=== PATIENT | female | born 1995 | race Caucasian/White ===

== ENCOUNTER → 2020-05-06 15:12 | Outpatient (CLI) | payer BC, SELFPAY ==
--- NOTE | 2020-05-06 15:19 | US_ITS ---
PROCEDURE: US THYROID CLINICAL INDICATION: ACQUIRED HYPOTHYROIDISM, THYROMEGALY COMPARISON: No exams were available for comparison FINDINGS: Right lobe: 4 x 0.9 x 1.1 cm. There is diffuse heterogeneous echogenicity. In the mid aspect of the right lobe there is an area irregular decreased echogenicity at 6 x5 x 3 mm. There is a questionable nodule in the upper pole posteriorly at 5 mm. This is hypoechoic. Left lobe: 3.3 x 0.9 x 1.4 cm with heterogeneous echogenicity but no discrete nodule. Isthmus: The isthmus measures 3-4 mm.. Superior to the isthmus there is an 8 by 2 mm area of hypoechogenicity and may be related to small lymph node. An additional 7 x 3 mm area of decreased echogenicity noted as well possibly due to small lymph node. Additional findings: IMPRESSION: There is heterogeneous echogenicity of the thyroid gland. There are questionable nodules on the right and superior to the isthmus. Recommend six-month follow-up to confirm stability Dictated by: Yinka Mustafa MD 05/07/2020 17:28 Yinka Mustafa MD in [place] 05/07/2020 17:28
== END ==
PROVIDERS: PCP Nurse Practitioner Family; Visit Provider Nurse Practitioner Family
DX: E03.9 Hypothyroidism, unspecified (principal); E01.0 Iodine-deficiency related diffuse (endemic) goiter
CPT/HCPCS: 76536

== ENCOUNTER → 2021-03-12 11:31 | Outpatient (CLI) | payer BC, SELFPAY ==
[2021-03-12 11:54] LABS: Basophils # 0.1 K/mm3 (0-0.2); Basophils % 0.7 % (0.1-2.0); Eosinophils # 0.2 K/mm3 (0.0-0.4); Eosinophils % 2.4 % (0.1-12.0); Hematocrit 42.3 % (37.0-47.0); Hemoglobin 14.5 g/dL (12.2-16.2); Lymphocytes # 1.8 K/mm3 (0.7-4.5); Lymphocytes % 24.2 % (10-50); Mean Corpuscular HGB Conc 34.2 g/dL (31.8-35.4); Mean Corpuscular Hemoglobin 31.6 pg (27.0-31.2); Mean Corpuscular Volume 92.2 fl (81-99); Mean Platelet Volume 7.5 fl (7.4-10.4); Monocytes # 0.6 K/mm3 (0.1-1.0); Monocytes % 7.6 % (1.7-9.3); Neutrophils # 4.7 K/mm3 (1.8-7.8); Neutrophils % 65.1 % (37.0-80.0); Platelet Count 327 K/mm3 (142-424); Red Blood Count 4.59 M/mm3 (4.20-5.40); White Blood Count 7.2 K/mm3 (4.8-10.8)
[2021-03-12 12:34] LABS: Chloride 101 mmol/L (98-107); Potassium 4.5 mmoL/L (3.5-5.1); Sodium 139 mmol/L (136-145)
[2021-03-12 12:36] LABS: Alanine Aminotransferase 31 U/L (12-78); Aspartate Amino Transferase 32 U/L (14-36); Blood Urea Nitrogen 9 mg/dl (7-17); Estimated Glomerular Filt Rate 85 ml/min (>60); GFR (African American) 103 ML/MIN (>60)
[2021-03-12 12:37] LABS: Albumin Level 4.8 g/dl (3.5-5.0); Albumin/Globulin Ratio 1.5 (1.1-1.8); Alkaline Phosphatase 59 U/L (38-126); Anion Gap 14.5 mEq/L (5-15); Bilirubin,Total 0.4 mg/dl (0.2-1.3); Calcium 10.3 mg/dl (8.4-10.2); Carbon Dioxide 28 mmol/L (22.0-30.0); Globulin 3.1 g/dL (1.3-3.2); Glucose 89 mg/dl (74-100); Total Protein,Serum 7.9 g/dl (6.3-8.2)
== END ==
PROVIDERS: Visit Provider Nurse Practitioner Family
DX: R10.2 Pelvic and perineal pain (principal); R10.9 Unspecified abdominal pain; M54.5 Low back pain; R31.9 Hematuria, unspecified
CPT/HCPCS: 36415; 80053; 85025

== ENCOUNTER → 2021-04-15 09:14 | Outpatient (CLI) | payer BC, SELFPAY ==
--- NOTE | 2021-04-15 09:17 | US_ITS ---
PROCEDURE: US THYROID CLINICAL INDICATION: THYROID NODULE COMPARISON: US US THYROID from 05/06/2020 FINDINGS: Right lobe: 2.8 x 0.9 x 1.1 cm. Ill-defined hypoechoic area in the upper pole posteriorly may be due to small nodule at 5 x 2 mm versus heterogeneous echogenicity not significantly changed. 3 mm hypoechoic nodule mid polar region slightly smaller. Left lobe: 2.7 x 0.7 x 1.1 cm Isthmus: 7 x 4 mm hypoechoic area superior to the left side of the isthmus and may be due to small node. 7 x 4 mm hypoechoic area superior to the isthmus also possibly due to small node versus overlying strap muscle. Additional findings: There is mild diffuse heterogeneous echogenicity of the thyroid gland as before. The IMPRESSION: No change in the small nodules of the right lobe of the thyroid gland and superior to the left side of the isthmus. Suggest continued annual follow-up Dictated by: Yinka Mustafa MD 04/15/2021 18:46 Yinka Mustafa MD in [facility] 04/15/2021 18:46
== END ==
PROVIDERS: PCP Nurse Practitioner Family; Visit Provider Nurse Practitioner Family
DX: E04.1 Nontoxic single thyroid nodule (principal)
CPT/HCPCS: 76536

== ENCOUNTER 2021-06-02 11:43 | Emergency (ER) | payer BC, SELFPAY ==
[2021-06-02] VITALS (8 sets, daily range): BP systolic 106–132; BP diastolic 57–87; PULSE 68–98; RESP 15–18; TEMP 36.6; O2SAT 98–100; BMI 35.9
--- NOTE | 2021-06-02 11:58 | XR_ITS ---
PROCEDURE: XR CHEST PORTABLE CLINICAL HISTORY: chest pain COMPARISON: CT CTAC CTA-CHEST from 04/17/2015 FINDINGS: The cardiomediastinal silhouette and pulmonary vascularity are within normal limits. The lungs are clear without infiltrates, suspicious nodules, or pleural effusions. No acute bony abnormalities. IMPRESSION: No acute findings. Dictated by: Yinka Mustafa MD 06/02/2021 12:32 Yinka Mustafa MD in [place] 06/02/2021 12:32
--- NOTE | 2021-06-02 12:07 | HMH.EDGENADL ---
ED Disposition Clinical Impression: Nausea vomiting and diarrhea Abdominal pain Qualifiers: Abdominal location: upper abdomen, unspecified Qualified Code(s): R10.10 - Upper abdominal pain, unspecified Disposition: Home, Self-Care Condition on Discharge: Fair Instructions: DI for Nausea -- Adult Additional Instructions: You have been evaluated for upper abdominal pain, nausea and vomiting. Your work-up today does not show one clear reason. Your appendix is rather large, but you do not have lower abdominal pain to suggest an acute appendicitis. Please take Zofran for nausea. Tylenol or Motrin for pain and fever. Clear liquid diet. Return to the emergency department at once if you have any new or worsening symptoms, especially if you develop pain near the bellybutton or right lower quadrant of the abdomen as this could be a sign of appendicitis. Prescriptions: Ondansetron [Zofran 4mg ODT] 4 mg PO Q6 PRN #12 tab PRN Reason: Vomiting Transmission Status: Pending to [id number] Referrals: Nuria Johnson APRN [Primary Care Provider] - Time of Disposition: 15:59 - Critical Care Critical Care Time: No Attestation: On 06/02/21, the high probability of a clinically significant, sudden or life threatening deterioration of the following system(s) required my full and direct attention, intervention and personal management. The time I documented below is in addition to time spent performing reported procedures but includes the following listed in this critical care notation. Medical Decision Making - Medical Records Medical records reviewed: Yes: I reviewed the patient's medical records. - Miguel Inquiry Pt receiving controlled substance: No Vital Signs: 06/02/21 11:43 06/02/21 12:30 06/02/21 13:00 Temperature 97.8 F Temperature Source Oral Pulse Rate 87 87 Pulse Rate [Left Radial] 98 H Respiratory Rate 18 15 16 Blood Pressure 113/70 116/67 Blood Pressure [Right Arm] 121/80 Blood Pressure Mean 78 79 Blood Pressure Mean [Right Arm] 93 Blood Pressure Source [Right Arm] Automatic Cuff Blood Pressure Position [Right Arm] Sitting 02 Sat by Pulse Oximetry 100 98 99 Oxygen Delivery Method Room Air 06/02/21 13:30 06/02/21 14:01 06/02/21 15:00 Temperature Temperature Source Pulse Rate 85 68 86 Pulse Rate [Left Radial] Respiratory Rate 16 17 Blood Pressure 107/57 L 116/65 129/87 Blood Pressure [Right Arm] Blood Pressure Mean 71 96 Blood Pressure Mean [Right Arm] Blood Pressure Source [Right Arm] Blood Pressure Position [Right Arm] 02 Sat by Pulse Oximetry 100 98 100 Oxygen Delivery Method 06/02/21 15:30 Temperature Temperature Source Pulse Rate 86 Pulse Rate [Left Radial] Respiratory Rate 15 Blood Pressure 106/62 L Blood Pressure [Right Arm] Blood Pressure Mean 77 Blood Pressure Mean [Right Arm] Blood Pressure Source [Right Arm] Blood Pressure Position [Right Arm] 02 Sat by Pulse Oximetry 100 Oxygen Delivery Method - Lab Data Lab Results 06/02/21 12:05: Urine Color Yellow, Urine Appearance Clear, Urine pH 6.0, Ur Specific Bruno >= 1.030, Urine Protein Negative, Urine Glucose (UA) Negative, Urine Ketones Negative, Urine Blood 2+, Urine Nitrate Negative, Urine Bilirubin Negative, Urine Urobilinogen 0.2, Ur Leukocyte Esterase Negative, Urine RBC 3-5, Urine WBC None, Ur Squamous Epith Cells 3-5, Urine Bacteria None 06/02/21 12:05: WBC 14.9 H, RBC 4.97, Hgb 15.0, Hct 45.6, MCV 91.7, MCH 30.1, MCHC 32.9, RDW 13.0, Plt Count 380, MPV 7.8, Neut % (Auto) 93.1 H, Lymph % (Auto) 3.4 L, Spink % (Auto) 2.6, Eos % (Auto) 0.7, Baso % (Auto) 0.2, Neut # (Auto) 13.9 H, Lymph # (Auto) 0.5 L, Spink # (Auto) 0.4, Eos # (Auto) 0.1, Baso # (Auto) 0.0, Total Counted 100, Neutrophils % (Manual) 95 H, Lymphocytes % (Manual) 2 L, Monocytes % (Manual) 3, Platelet Estimate Normal, RBC Morphology Normal 06/02/21 12:05: Sodium 138, Potassium 5.0, Chloride 101, Carb
[2021-06-02 12:18] LABS: Appearance,Urine CLEAR (Clear); Bilirubin,Urine Negative (Negative); Blood, Urine 2+ (Negative); Color,Urine YELLOW (Yellow); Glucose,Urine (UA) Negative (Negative); Ketones,Urine Negative (Negative); Leukocyte Esterase,Urine Negative (Negative); Microscopic, Urine URINE MICROSCOPIC (MICROSCOPIC); Nitrate,Urine Negative (Negative); Protein,Urine Negative (Negative); Specific Gravity, Urine >= 1.030 (1.005-1.030); Urobilinogen,Urine 0.2 EU/dl (0.2)
[2021-06-02 12:23] LABS: Basophils % 0.2 % (0.1-2.0); Chloride 101 mmol/L (98-107); Eosinophils # 0.1 K/mm3 (0.0-0.4); Eosinophils % 0.7 % (0.1-12.0); Hematocrit 45.6 % (37.0-47.0); Lymphocytes # 0.5 K/mm3 (0.7-4.5); Lymphocytes % 3.4 % (10-50); Mean Corpuscular HGB Conc 32.9 g/dL (31.8-35.4); Mean Corpuscular Hemoglobin 30.1 pg (27.0-31.2); Mean Corpuscular Volume 91.7 fl (81-99); Mean Platelet Volume 7.8 fl (7.4-10.4); Monocytes # 0.4 K/mm3 (0.1-1.0); Monocytes % 2.6 % (1.7-9.3); Neutrophils # 13.9 K/mm3 (1.8-7.8); Neutrophils % 93.1 % (37.0-80.0); Platelet Count 380 K/mm3 (142-424); Red Blood Count 4.97 M/mm3 (4.20-5.40); Sodium 138 mmol/L (136-145); White Blood Count 14.9 K/mm3 (4.8-10.8)
[2021-06-02 12:25] LABS: Alanine Aminotransferase 37 U/L (12-78); Aspartate Amino Transferase 56 U/L (14-36); Blood Urea Nitrogen 19 mg/dl (7-17); Creatinine Clearance Estimated 142 mL/min (50-200); Estimated Glomerular Filt Rate 85 ml/min (>60); GFR (African American) 103 ML/MIN (>60)
[2021-06-02 12:26] LABS: Albumin/Globulin Ratio 1.5 (1.1-1.8); Alkaline Phosphatase 53 U/L (38-126); Bilirubin,Total 0.8 mg/dl (0.2-1.3); Calcium 9.5 mg/dl (8.4-10.2); Carbon Dioxide 25 mmol/L (22.0-30.0); Globulin 3.3 g/dL (1.3-3.2); Glucose 109 mg/dl (74-100); Lipase 82 U/L (23-300); Total Protein,Serum 8.3 g/dl (6.3-8.2)
[2021-06-02 12:28] LABS: MANUAL DIFFERENTIAL MANUAL DIFFERENTIAL (MANUAL DIFF)
[2021-06-02 12:30] LABS: HCG Qualitative, Serum Negative (Negative)
--- NOTE | 2021-06-02 12:35 | CT_ITS ---
PROCEDURE: CT ABDOMEN PELVIS W CON CLINICAL INDICATION: nausea, vomiting, abd pain COMPARISON: No exams were available for comparison TECHNIQUE: IV Contrast: 75ML Isovue 370 Oral Contrast None Axial images obtained with sagittal and coronal reformats. All CT scans at the facility use one or more dose reduction, viz: automated exposure control, ma/kV adjustment per patient size (including targeted exams where dose is matched to indication, i.e. head), or iterative reconstruction technique. FINDINGS: LOWER THORAX: No acute finding ABDOMEN & PELVIS: The liver, spleen, pancreas, adrenal glands, and kidneys have an unremarkable appearance. 8 mm fatty density is noted in the transverse portion of the duodenum suggesting a small lipoma. No intestinal obstruction or free air is evident. Proximal aspect of the appendix has an unremarkable appearance. There is mild prominence of the mid aspect of the appendix measuring up to 9 mm in diameter. There is no stranding of the periappendiceal fat. The appendiceal tip has an unremarkable appearance. No pelvic mass or abnormal fluid collection. No acute bony anomalies IMPRESSION: There is mild distension of the mid aspect of the appendix. The proximal aspect and tip of the appendix have an unremarkable appearance. There is no stranding of the periappendiceal fat. This is of questionable clinical significance. Please correlate with clinical parameters regarding the possibility of early appendicitis. If clinical findings are indeterminate then would suggest a follow-up exam with IV and oral contrast in 12-24 hours. Dictated by: Yinka Mustafa MD 06/02/2021 14:43 Yinka Mustafa MD in [place] 06/02/2021 14:43
[2021-06-02 12:41] LABS: Coronavirus 19, PCR Not Detected (NotDetected); Influenza A, PCR Not Detected (NotDetected); Influenza B, PCR Not Detected (NotDetected)
[2021-06-02 12:52] LABS: Lymphocytes % 2 % (10-50); Monocytes % 3 % (2-9); Neutrophils % 95 % (42-76); Platelet Estimate Normal; Total Cells Counted 100
[2021-06-02 12:54] LABS: RBC Morphology Normal
--- NOTE | 2021-06-02 16:04 | HMH.GSCON ---
*Admission Date: 06/02/21 *Reason for consult:: Abdominal pain *History of present illness: Patient is a 26-year-old female from [place] who previously had laparoscopic cholecystectomy by Dr. Johnson 5 years ago for cholelithiasis. Presented to the emergency department after having onset of epigastric pain with nausea occurring early this morning. She describes the pain as constant burning. It had improved after she had vomiting. She has never had any lower abdominal pain. She has children who have had enteritis. She was seen and evaluated emergency department found to have a mild leukocytosis of 14,000. She therefore underwent CT scan of the abdomen and pelvis which somewhat interestingly revealed a 9 mm appendix without any stranding. Surgery was asked to evaluate Review of Systems - Review of Systems Review of systems:: pertinent systems reviewed and negative unless documented below - *Neurologic Denies headache(s), Denies numbness [facility] History I have reviewed the patient's past medical history: Yes *Have you ever received a pneumonia vaccine?: No *Have you received a flu vaccine this season?: No - *Social History Smoking Status: Smoker, status unknown Alcohol Intake: never *Occupational Status:: other *Travel in the last 8 weeks: None Family Hx:: Non-contributory Meds Home Medications Medication Instructions Recorded Confirmed Type predniSONE [Prednisone 20mg 20 mg PO BID 5 Days #10 tab 05/22/19 Rx Tab] Ondansetron [Zofran 4mg ODT] 4 mg PO Q6 PRN #12 tab 06/02/21 Rx Allergies Allergy/AdvReac Type Severity Reaction Status Date / Time ibuprofen [IBUPROFEN] Allergy Intermediate I-HIVES Verified 06/16/18 22:26 Exam Vital signs and Labs for Last 24 Hours: Temp Pulse Resp BP Pulse Ox 97.8 F 86 15 106/62 L 100 06/02/21 11:43 06/02/21 15:30 06/02/21 15:30 06/02/21 15:30 06/02/21 15:30 Laboratory Results - last 24 hr 06/02/21 12:05: Urine Color Yellow, Urine Appearance Clear, Urine pH 6.0, Ur Specific Panther Burn >= 1.030, Urine Protein Negative, Urine Glucose (UA) Negative, Urine Ketones Negative, Urine Blood 2+, Urine Nitrate Negative, Urine Bilirubin Negative, Urine Urobilinogen 0.2, Ur Leukocyte Esterase Negative, Urine RBC 3-5, Urine WBC None, Ur Squamous Epith Cells 3-5, Urine Bacteria None 06/02/21 12:05: WBC 14.9 H, RBC 4.97, Hgb 15.0, Hct 45.6, MCV 91.7, MCH 30.1, MCHC 32.9, RDW 13.0, Plt Count 380, MPV 7.8, Neut % (Auto) 93.1 H, Lymph % (Auto) 3.4 L, Hand % (Auto) 2.6, Eos % (Auto) 0.7, Baso % (Auto) 0.2, Neut # (Auto) 13.9 H, Lymph # (Auto) 0.5 L, Hand # (Auto) 0.4, Eos # (Auto) 0.1, Baso # (Auto) 0.0, Total Counted 100, Neutrophils % (Manual) 95 H, Lymphocytes % (Manual) 2 L, Monocytes % (Manual) 3, Platelet Estimate Normal, RBC Morphology Normal 06/02/21 12:05: Sodium 138, Potassium 5.0, Chloride 101, Carbon Dioxide 25, Anion Gap 17.0 H, BUN 19 H, Creatinine 0.80, Estimated Creat Clear 142, Estimated GFR 85, Est GFR ( Amer) 103, Glucose 109 H, Calcium 9.5, Total Bilirubin 0.8, AST 56 H, ALT 37, Alkaline Phosphatase 53, Total Protein 8.3 H, Albumin 5.0, Globulin 3.3 H, Albumin/Globulin Ratio 1.5, Lipase 82 06/02/21 12:05: Serum HCG, Qual Negative 06/02/21 12:34: SARS-CoV-2 (PCR) Not detected, Influenza A Untype (PCR) Not detected, Influenza Type B (PCR) Not detected I & O for Last 24 hours: Intake & Output 05/31/21 06/01/21 06/02/21 06/03/21 11:59 11:59 11:59 11:59 Weight 190 lb - *Routine Abdominal Exam Present: soft Comments: Her abdomen is soft. She has some subjective discomfort to palpation in the epigastrium. Mild subjective discomfort in the left lower quadrant without guarding or rebound. No tenderness guarding or rebound in the right lower quadrant. Results - Labs 06/02/21 12:05 06/02/21 12:05 Laboratory Results - last 24 hr 06/02/21 12:05: Urine Color Yellow, Urine Appearance Clear, Urine pH 6.0, Ur Specific Panther Burn >= 1.030, Urine Prot
== END 2021-06-02 16:20 | disposition home or self-care (01) ==
PROVIDERS: Emergency Provider Emergency Medicine; PCP Nurse Practitioner Family
DX: R11.2 Nausea with vomiting, unspecified (principal); R10.31 Right lower quadrant pain; Z20.822 Contact with and (suspected) exposure to COVID-19
CPT/HCPCS: 71045; 74177; 80053; 81001; 83690; 84703; 85007; 85025; 96365; 96375; 96376; 99283; C9803; J2405; Q9967; U0003; U0005

== ENCOUNTER 2023-02-24 11:59 | Emergency (ER) | payer BC, SELFPAY ==
[2023-02-24 12:10] VITALS: BP 129/93; PULSE 77; RESP 18; TEMP 36.7; O2SAT 100; BMI 33.7
--- NOTE | 2023-02-24 12:13 | XR_ITS ---
FINAL REPORT CLINICAL HISTORY: pain FINDINGS: Left wrist Three views were obtained. There is no acute fracture or dislocation. The joint spaces appear normal. No soft tissue abnormality is identified. IMPRESSION: No acute process. Reviewed, Interpreted and Dictated by Henry Nicholas III, MD Transcribed by Keyanna Greer Authenticated and [facility]
--- NOTE | 2023-02-24 12:13 | XR_ITS ---
FINAL REPORT CLINICAL HISTORY: pain FINDINGS: Left hand Three views were obtained. There is no acute fracture or dislocation. The joint spaces appear normal. No soft tissue abnormality is identified. IMPRESSION: No acute process. Reviewed, Interpreted and Dictated by Henry Nicholas III, MD Transcribed by Keyanna Greer Authenticated and [facility]
--- NOTE | 2023-02-24 12:18 | XR_ITS ---
FINAL REPORT CLINICAL HISTORY: pain FINDINGS: Left elbow Three views were obtained. There is no acute fracture or dislocation. The joint spaces appear normal. No joint effusion is identified. No soft tissue abnormality is identified. IMPRESSION: No acute process. Reviewed, Interpreted and Dictated by Henry Nicholas III, MD Transcribed by Keyanna Greer Authenticated and . [facility]
--- NOTE | 2023-02-24 12:18 | XR_ITS ---
FINAL REPORT CLINICAL HISTORY: pain FINDINGS: Left forearm Two views were obtained. There is no acute fracture or dislocation. The joint spaces appear normal. No soft tissue abnormality is identified. IMPRESSION: No acute process. Reviewed, Interpreted and Dictated by Henry Nicholas III, MD Transcribed by Keyanna Greer Authenticated and [facility]
--- NOTE | 2023-02-24 12:39 | EXP.UTC ---
Discharge Plan Disposition Patient Disposition: Home, Self-Care Condition: Good Prescriptions Prescriptions: New methylprednisolone 4 mg Tablets,Dose Pack 4 mg PO DIRECTED Qty: 21 0RF No Action cetirizine 10 mg tablet 10 mg PO DAILY Patient Comments: TAKE 1 TABLET 1 TIME EACH DAY levothyroxine 125 mcg tablet 125 mcg PO DAILY Patient Comments: TAKE 1 TABLET 1 TIME EACH DAY bupropion HCl 200 mg tablet sustained-release 12 hr 400 mg PO DAILY Patient Comments: TAKE 1 TABLET 2 TIMES EACH DAY Saxenda 3 mg/0.5 mL (18 mg/3 mL) pen injector 2.4 mg SQ DAILY Patient Comments: INJECT 1.8 MG UNDER THE SKIN 1 TIME EACH DAY Referrals Follow up/Referrals: Duarte Johnson JR, MD [Physician] - See instructions Rebeka Chris APRN [Primary Care Provider] - See instructions Activity Restrictions/Add. Instructions Additional Instructions/Restrictions: Rest the extremity, Elevate the extremity as tolerated while you are resting. Take the methylprednisone as directed. Follow up with Dr. Johnson (orthopedics). I put in a referral but you need to call his office and schedule an appointment. His office phone number will be on this paperwork. Follow up with your regular doctor. GO TO THE ER FOR ANY WORSENING SYMPTOMS Clinical Impressions Clinical Impression: Tendinitis of left wrist, Left wrist pain, Pain in left arm Stand Alone Forms Stand Alone Forms: Work/School Release Instructions Patient Instructions: DI for Tendinitis, DI for Wrist Pain Discharge ED Provider: Nikunj Walker [facility] General Stated complaint: left wrist pain, unknown origin Mode of Arrival: Ambulatory Source of Information: Patient Limitations: No Limitations Time Seen by Provider: 02/24/23 12:38 Description of Symptoms (Recalled from Triage Doc. by RN): Pain in left wrist that radiates from wrsit to elbow. She described it as a deep shooting pain . HEENT Symptoms (Recalled from RN notes): No Resp Symptoms (Recalled from RN notes): No Skin Symptoms (Recalled from RN notes): No MS Symptoms (Recalled from RN notes): Yes Functional Status (Recalled from RN notes): n/a History of Present Illness Provider Complaint: She states that for the past 5 days she has had right wrist pain. She denies any injury. She states that bending the wrist makes the pain worse. Related Data Home Medications Medication Instructions Recorded Confirmed bupropion HCl 200 mg tablet,12 hr 400 mg PO DAILY . 02/24/23 02/24/23 sustained-release cetirizine 10 mg tablet 10 mg PO DAILY allergies 02/24/23 02/24/23 levothyroxine 125 mcg tablet 125 mcg PO DAILY thyroid 02/24/23 02/24/23 liraglutide (weight loss) 3 mg/0.5 2.4 mg SQ DAILY insulin resistant 02/24/23 02/24/23 mL (18 mg/3 mL) subcut pen injector (Saxenda) Previous Rx's Medication Instructions Recorded methylprednisolone 4 mg tablets in 4 mg PO DIRECTED #21 tabs 02/24/23 a dose pack Allergies Allergy/AdvReac Type Severity Reaction Status Date / Time ibuprofen [IBUPROFEN] Allergy Intermediate I-HIVES Verified 02/24/23 12:21 Worker's Comp Is this a Worker's Comp case?: No [facility] Disclaimer: The information contained in this section may have been updated after the patient was seen, as this information can be updated by other users. Social History Smoking Status: Smoker, status unknown alcohol intake: never current occupational status: other Travel in the last 8 weeks: None ROS Obtained: Yes All systems reviewed & no additional complaints except as documented Constitutional Constitutional: Denies chills and Denies fever(s) Eyes Eyes: Denies eye discharge ENT Ears, Nose, Mouth, and Throat: Denies dizziness, Denies otalgia and Denies sore throat Cardiovascular Cardiovascular: Denies chest pain Respiratory Respiratory: Denies shortness of breath, Denies chest congestion, Denies cough, Denies stridor and
[2023-02-24 13:15] VITALS: BP 129/93; PULSE 77; RESP 18; TEMP 36.7; O2SAT 100
== END 2023-02-24 13:15 | disposition home or self-care (01) ==
PROVIDERS: Emergency Provider Nurse Practitioner Family; PCP Nurse Practitioner Family
DX: M79.602 Pain in left arm (principal); M25.532 Pain in left wrist; M77.8 Other enthesopathies, not elsewhere classified
CPT/HCPCS: 73080; 73090; 73110; 73130; 99204; 99212; G0463

== ENCOUNTER 2023-04-09 14:22 | Emergency (ER) | payer BC, SELFPAY ==
[2023-04-09 14:35] VITALS: BP 116/69; PULSE 85; RESP 20; TEMP 36.8; O2SAT 98; BMI 34.2
--- NOTE | 2023-04-09 15:08 | EXP.UTC ---
Discharge Plan Disposition Patient Disposition: Home, Self-Care Condition: Good Prescriptions Prescriptions: New methocarbamol 500 mg tablet 500 mg PO TID PRN (Reason: muscle spasm) Qty: 20 0RF amoxicillin 500 mg capsule 500 mg PO BID 10 Days Qty: 20 0RF No Action cetirizine 10 mg tablet 10 mg PO DAILY Patient Comments: TAKE 1 TABLET 1 TIME EACH DAY levothyroxine 125 mcg tablet 125 mcg PO DAILY Patient Comments: TAKE 1 TABLET 1 TIME EACH DAY bupropion HCl 200 mg tablet sustained-release 12 hr 400 mg PO DAILY Patient Comments: TAKE 1 TABLET 2 TIMES EACH DAY Saxenda 3 mg/0.5 mL (18 mg/3 mL) pen injector 2.4 mg SQ DAILY Patient Comments: INJECT 1.8 MG UNDER THE SKIN 1 TIME EACH DAY Referrals Follow up/Referrals: Provider,Referral, MD [Primary Care Provider] - See instructions Activity Restrictions/Add. Instructions Additional Instructions/Restrictions: * Tylenol every 4 hours as needed for pain *Ice 20 minutes every 2 hours for the first 48 hours after the initial injury followed by moist heat every 20 minutes 3-4 times a day to affected area *Muscle relaxer every 8 hours as needed for muscle spasms but remember, it WILL cause drowsiness You cannot take it and drive, operate machinery or care for small children. *Keep this area active, no movement leads to more stiffness, However take it easy and avoid heavy lifting pushing or pulling *Follow up with you family doctor if no improvement for further treatment ? *Monitor Temp, Over the counter Motrin or Tylenol as directed/as needed Tylenol every 4 hours and Motrin every 6 hours (as long as your family doctor has told you that you can take it) for fever or pain. and straight to ER if unable to lower temp less than 101.0 after medication given *Warm salt water gargles may help to soothe the throat *Throat Lozenges? *Warm fluids like tea with honey may help to soothe the throat? *Sleep elevated *Humidifier/Vaporizer Follow up IMMEDIATELY for new or worsening symptoms or no Noticeable improvement over the next 48-72 hours. 911 for difficulty breathing or swallowing? Clinical Impressions Clinical Impression: Muscle spasm, Strep throat Stand Alone Forms Stand Alone Forms: Work/School Release Instructions Patient Instructions: DI for Muscle Spasm, DI for Strep Throat Discharge ED Provider: Ct Conley [facility] [place] HPI General Stated complaint: UPPER BACK PAIN MIDDLE TO LEFT Mode of Arrival: Ambulatory Source of Information: Patient Limitations: No Limitations Time Seen by Provider: 04/09/23 15:08 Description of Symptoms (Recalled from Triage Doc. by RN): PATIENT C/O SHARP PAIN TO LEFT UPPER BACK/SHOULDER BLADE AREA THAT STARTED THIS MORNING. SHE REPORTS PAIN WITH MOVEMENT AND BREATHING. ALSO C/O SORE THROAT HEENT Symptoms (Recalled from RN notes): Yes Resp Symptoms (Recalled from RN notes): No Skin Symptoms (Recalled from RN notes): No MS Symptoms (Recalled from RN notes): Yes Functional Status (Recalled from RN notes): WNL History of Present Illness Provider Complaint: Patient states that she had a massage a few days ago and she woke up this morning with pain in her left upper back shoulder blade area that is worse with movement and at times when she takes a deep breath States that she is not sure if she may have slept wrong last night or what but feels tight like she is having spasms States that also her throat is red and sore and wants to get that checked too Related Data Home Medications Medication Instructions Recorded Confirmed bupropion HCl 200 mg tablet,12 hr 400 mg PO DAILY Depression 02/24/23 04/09/23 sustained-release cetirizine 10 mg tablet 10 mg PO DAILY Allergy Symptoms 02/24/23 04/09/23 levothyroxine 125 mcg tablet 125 mcg PO DAILY thyroid 02/24/23 04/09/23 liraglutide (weight loss) 3 mg/0.5 2.4 mg SQ DAILY insu
[2023-04-09 15:25] LABS: UTC Strep Screen (Rapid) Positive (Negative)
[2023-04-09 15:28] VITALS: BP 116/69; PULSE 85; RESP 20; TEMP 36.8; O2SAT 98
== END 2023-04-09 15:32 | disposition home or self-care (01) ==
PROVIDERS: Emergency Provider Nurse Practitioner
DX: J02.0 Streptococcal pharyngitis (principal); M62.838 Other muscle spasm
CPT/HCPCS: 87880; 99212; 99214; G0463

== ENCOUNTER 2023-05-18 09:55 | Emergency (ER) | payer BC, SELFPAY ==
[2023-05-18] VITALS (10 sets, daily range): BP systolic 100–157; BP diastolic 60–101; PULSE 66–88; RESP 18–20; TEMP 36.7–36.8; O2SAT 98–100; BMI 31.0
[2023-05-18 11:00] LABS: UTC Pregnancy Test, Urine Negative (Negative)
[2023-05-18 11:01] LABS: Apearance,Urine Clear (Clear); Bilirubin,Urine Negative (Negative); Blood, Urine 2+ (Negative); Color,Urine Dark Yellow (Yellow); Glucose,Urine (UA) Negative (Negative); Ketones,Urine Negative (Negative); PH,Urine 5.5 (5.0-8.5); Protein,Urine Negative (Negative); UTC Leukocyte Esterase,Urine Trace (Negative); UTC Nitrate,Urine Negative (Negative); Urobilinogen,Urine 0.2 EU/dl (0.2)
--- NOTE | 2023-05-18 11:01 | EXP.UTC ---
Discharge Plan Disposition Patient Disposition: Still a Patient Condition: Good Prescriptions Prescriptions: New ondansetron 4 mg tablet,disintegrating 4 mg PO Q8H PRN (Reason: nausea and vomiting) 4 Days Qty: 12 0RF pantoprazole 40 mg tablet,delayed release (DR/EC) 40 mg PO DAILY Qty: 30 0RF No Action cetirizine 10 mg tablet 10 mg PO DAILY Patient Comments: TAKE 1 TABLET 1 TIME EACH DAY levothyroxine 125 mcg tablet 125 mcg PO DAILY Patient Comments: TAKE 1 TABLET 1 TIME EACH DAY bupropion HCl 200 mg tablet sustained-release 12 hr 400 mg PO DAILY Patient Comments: TAKE 1 TABLET 2 TIMES EACH DAY Saxenda 3 mg/0.5 mL (18 mg/3 mL) pen injector 2.4 mg SQ DAILY Patient Comments: INJECT 1.8 MG UNDER THE SKIN 1 TIME EACH DAY Referrals Follow up/Referrals: Provider,Junior, [Primary Care Provider] - See instructions Jean-Claude Russell MD [Staff Physician] - See instructions (with persistent symptoms to discuss and EGD for evaluation of a possible ulcer ) Activity Restrictions/Add. Instructions Additional Instructions/Restrictions: No acute surgical or medical emergency was identified today. Your symptoms are most likely consistent with gastroesophageal reflux disease but given the persistence of your symptoms a referral to our general surgeon has been made and you may make an appointment to discuss an outpatient EGD for evaluation of possible ulcer if your symptoms or not improving. Please continue to take [id number] antacids and take your pantoprazole that was prescribed by Dr. Colon. Clinical Impressions Clinical Impression: Gastroesophageal reflux disease, Abdominal pain, Hematuria Stand Alone Forms Stand Alone Forms: Work/School Release Discharge ED Provider: Alona Colon [facility] General Stated complaint: abd pain and right side pain Mode of Arrival: Ambulatory Source of Information: Patient Limitations: No Limitations Time Seen by Provider: 05/18/23 11:01 Description of Symptoms (Recalled from Triage Doc. by RN): Pt has been having diarrhea, vomiting, and nausea. She is complaing of upper right sided abdominal pain that wraps around the back right side. She states that is starts right below the sternum. HEENT Symptoms (Recalled from RN notes): No Resp Symptoms (Recalled from RN notes): No Skin Symptoms (Recalled from RN notes): No MS Symptoms (Recalled from RN notes): No Functional Status (Recalled from RN notes): n/a History of Present Illness Provider Complaint: Patient states states that she has been having some acid reflux and been taking tums and had some diarrhea and vomiting States that since this morning she has been having pain in her right side flank area to her right mid abdomen States feels like it goes from her naval area to around her right side states that she doesnt have a gallbladder but pain is making her very uncomfortable Related Data Home Medications Medication Instructions Recorded Confirmed bupropion HCl 200 mg tablet,12 hr 400 mg PO DAILY Depression 02/24/23 05/18/23 sustained-release cetirizine 10 mg tablet 10 mg PO DAILY Allergy Symptoms 02/24/23 05/18/23 levothyroxine 125 mcg tablet 125 mcg PO DAILY thyroid 02/24/23 05/18/23 liraglutide (weight loss) 3 mg/0.5 2.4 mg SQ DAILY insulin resistant 02/24/23 05/18/23 mL (18 mg/3 mL) subcut pen injector (Saxenda) Previous Rx's Medication Instructions Recorded ondansetron 4 mg disintegrating 4 mg PO Q8H PRN nausea and 05/18/23 tablet vomiting 4 days #12 tabs pantoprazole 40 mg tablet,delayed 40 mg PO DAILY #30 tabs 05/18/23 release Allergies Allergy/AdvReac Type Severity Reaction Status Date / Time ibuprofen [IBUPROFEN] Allergy Intermediate I-HIVES Verified 05/18/23 10:52 Worker's Comp Is this a Worker's Comp case?: No [facility] Disclaimer: The information contained in this section may have been updated after the patient was seen, as t
--- NOTE | 2023-05-18 11:56 | ECG_ITS ---
APPROVED REPORT Exam: Resting ECG HR:75 bpm ECG Measurements Heart Rate 75 AXES SD 168 P 67 QRSd 95 QRS 57 QT 368 T 76 QTc 396 Conclusion SINUS RHYTHM NORMAL ECG UNCONFIRMED REPORT Electronically signed by : Vineet Chery MD 05/19/2023 13:23:29
--- NOTE | 2023-05-18 12:00 | PC.NURSE ---
checked on pt no needs at this time,call light at bs
[2023-05-18 12:04] LABS: Basophils % 0.4 % (0.1-2.0); Eosinophils # 0.2 K/mm3 (0.0-0.4); Eosinophils % 2.8 % (0.1-12.0); Hematocrit 43.6 % (37.0-47.0); Hemoglobin 14.7 g/dL (12.2-16.2); Lymphocytes # 2.1 K/mm3 (0.7-4.5); Lymphocytes % 25.9 % (10-50); Mean Corpuscular HGB Conc 33.7 g/dL (31.8-35.4); Mean Corpuscular Hemoglobin 30.1 pg (27.0-31.2); Mean Corpuscular Volume 89.2 fl (81-99); Mean Platelet Volume 8.3 fl (7.4-10.4); Monocytes # 0.6 K/mm3 (0.1-1.0); Neutrophils # 5.2 K/mm3 (1.8-7.8); Neutrophils % 63.8 % (37.0-80.0); Platelet Count 289 K/mm3 (142-424); Red Blood Count 4.89 M/mm3 (4.20-5.40); Red Cell Distribution Width 13.6 % (11.5-17.5); White Blood Count 8.2 K/mm3 (4.8-10.8)
[2023-05-18 12:08] LABS: Alanine Aminotransferase 22 U/L (12-78); Albumin/Globulin Ratio 1.4 (1.1-1.8); Alkaline Phosphatase 54 U/L (38-126); Anion Gap 13.1 mEq/L (5-15); Aspartate Amino Transferase 32 U/L (14-36); Bilirubin,Total 0.5 mg/dl (0.2-1.3); Blood Urea Nitrogen 12 mg/dl (7-17); Calcium 9.4 mg/dl (8.4-10.2); Carbon Dioxide 24 mmol/L (22.0-30.0); Chloride 105 mmol/L (98-107); Creatinine Clearance Estimated 97 mL/min (50-200); Estimated Glomerular Filt Rate 58 ml/min (>60); GFR (African American) 71 ML/MIN (>60); Globulin 3.5 g/dL (1.3-3.2); Glucose 84 mg/dl (74-100); Lipase 90 U/L (23-300); Potassium 4.1 mmoL/L (3.5-5.1); Sodium 138 mmol/L (136-145); Total Protein,Serum 8.5 g/dl (6.3-8.2)
--- NOTE | 2023-05-18 12:12 | HMH.EDGENADL ---
Discharge Plan Disposition Patient Disposition: Still a Patient Condition: Good Prescriptions Prescriptions: New ondansetron 4 mg tablet,disintegrating 4 mg PO Q8H PRN (Reason: nausea and vomiting) 4 Days Qty: 12 0RF pantoprazole 40 mg tablet,delayed release (DR/EC) 40 mg PO DAILY Qty: 30 0RF No Action cetirizine 10 mg tablet 10 mg PO DAILY Patient Comments: TAKE 1 TABLET 1 TIME EACH DAY levothyroxine 125 mcg tablet 125 mcg PO DAILY Patient Comments: TAKE 1 TABLET 1 TIME EACH DAY bupropion HCl 200 mg tablet sustained-release 12 hr 400 mg PO DAILY Patient Comments: TAKE 1 TABLET 2 TIMES EACH DAY Saxenda 3 mg/0.5 mL (18 mg/3 mL) pen injector 2.4 mg SQ DAILY Patient Comments: INJECT 1.8 MG UNDER THE SKIN 1 TIME EACH DAY Referrals Follow up/Referrals: Provider,MD Junior [Primary Care Provider] - See instructions Jean-Claude Russell MD [Staff Physician] - See instructions (with persistent symptoms to discuss and EGD for evaluation of a possible ulcer ) Activity Restrictions/Add. Instructions Additional Instructions/Restrictions: No acute surgical or medical emergency was identified today. Your symptoms are most likely consistent with gastroesophageal reflux disease but given the persistence of your symptoms a referral to our general surgeon has been made and you may make an appointment to discuss an outpatient EGD for evaluation of possible ulcer if your symptoms or not improving. Please continue to take [id number] antacids and take your pantoprazole that was prescribed by Dr. Colon. Clinical Impressions Clinical Impression: Gastroesophageal reflux disease, Abdominal pain, Hematuria Discharge ED Provider: Alona Colon General Adult HPI <Alona Colon DO - Last Filed: 05/18/23 16:09> General Stated complaint: abd pain and right side pain Time Seen by Provider: 05/18/23 11:01 Mode of Arrival: Ambulatory Source of Information: Patient Limitations: No Limitations Description of Symptoms (Recalled from ER Triage Doc. by RN): Pt has been having diarrhea, vomiting, and nausea. She is complaing of upper right sided abdominal pain that wraps around the back right side. She states that is starts right below the sternum. History of Present Illness HPI narrative: This patient is a 28-year-old female with a history of cholecystectomy and hypothyroidism presenting to the emergency department for evaluation with concern for abdominal pain, nausea, vomiting, and diarrhea. The patient is that she has had some pain after eating for a few days, which seems to resolve with Tums, however after development of nausea, vomiting, and loose watery diarrhea, her pain has been more persistent. Emesis is nonbloody and nonbilious. Diarrhea is nonbloody. She now complains of pain wrapping around from her epigastric region to her right upper quadrant. She notes history of cholecystectomy a few years ago. She denies any history of pancreatitis. She denies any fevers, chills, chest pain, shortness of breath, cough, congestion, or other concerns. Related Data Home Medications Medication Instructions Recorded Confirmed bupropion HCl 200 mg tablet,12 hr 400 mg PO DAILY Depression 02/24/23 05/18/23 sustained-release cetirizine 10 mg tablet 10 mg PO DAILY Allergy Symptoms 02/24/23 05/18/23 levothyroxine 125 mcg tablet 125 mcg PO DAILY thyroid 02/24/23 05/18/23 liraglutide (weight loss) 3 mg/0.5 2.4 mg SQ DAILY insulin resistant 02/24/23 05/18/23 mL (18 mg/3 mL) subcut pen injector (Saxenda) Previous Rx's Medication Instructions Recorded ondansetron 4 mg disintegrating 4 mg PO Q8H PRN nausea and 05/18/23 tablet vomiting 4 days #12 tabs pantoprazole 40 mg tablet,delayed 40 mg PO DAILY #30 tabs 05/18/23 release Allergies Allergy/AdvReac Type Severity Reaction Status Date / Time ibuprofen [IBUPROFEN] Allergy Intermediate I-HIVES Verified 05/18/23 10:52
--- NOTE | 2023-05-18 12:48 | CT_ITS ---
FINAL REPORT TECHNIQUE: Axial images through the abdomen and pelvis were performed without contrast. This study was performed with techniques to keep radiation doses as low as reasonably achievable, (ALARA). Individualized dose reduction techniques using automated exposure control or adjustment of mA and/or kV according to the patient's size were employed. CLINICAL HISTORY: R flank pain COMPARISON: 06/02/2021 FINDINGS: ABDOMEN: The lung bases are clear. The heart size is normal. Limited images of the liver are unremarkable. The patient is status post cholecystectomy. The spleen is normal. No adrenal mass is identified. The aorta is normal in caliber. There is no significant free fluid or adenopathy. There is no nephrolithiasis. There is no hydronephrosis. PELVIS: The appendix is normal. There are multiple fluid-filled large and small bowel loops which are nonspecific, may represent enteritis. The urinary bladder is unremarkable. There is no significant free fluid or adenopathy. Incidental note is made of L5 pars defects. IMPRESSION: Findings may represent enteritis. Reviewed, Interpreted and Dictated by Henry Nicholas III, MD Transcribed by Keyanna Greer Authenticated and [facility]
--- NOTE | 2023-05-18 12:51 | PC.NURSE ---
pt hooked back up to data machine resting in bed no needs at this time,call light at bs
--- NOTE | 2023-05-18 13:29 | PC.NURSE ---
Pt gone to RAD via wheelchair
--- NOTE | 2023-05-18 13:38 | PC.NURSE ---
Pt returned from RAD
--- NOTE | 2023-05-18 13:47 | PC.NURSE ---
Shiva Busch rounded on pt. No needs voiced. Call light within reach.
--- NOTE | 2023-05-18 14:30 | PC.NURSE ---
checked with radiology about ct reading
--- NOTE | 2023-05-18 14:47 | INFXCTL.NOTE ---
patient resting in bed c/o cold & headache. Was just administered Tylenol for headache and given heated blanket. States that acid reflux is improving with Protnix meds. Denies needs/concerns at this time.
--- NOTE | 2023-05-18 16:24 | PC.NURSE ---
radiology faxing prelim
== END 2023-05-18 16:41 | disposition still patient (30) ==
LOC: UTC 09:58 → ER 11:04 → UTC 11:04 → ER 11:05
PROVIDERS: Nurse Practitioner; Emergency Provider Emergency Medicine
DX: R10.13 Epigastric pain (principal); R10.11 Right upper quadrant pain; R19.7 Diarrhea, unspecified; R11.2 Nausea with vomiting, unspecified; K21.9 Gastro-esophageal reflux disease without esophagitis; R31.9 Hematuria, unspecified
CPT/HCPCS: 74176; 80053; 81003; 81025; 83690; 85025; 87086; 93005; 96361; 96374; 96375; 99285; J2405

== ENCOUNTER → 2023-06-11 14:05 | Outpatient (CLI) | payer BC, SELFPAY ==
--- NOTE | 2023-06-11 14:09 | US_ITS ---
FINAL REPORT TECHNIQUE: Limited sonographic images of the thyroid were obtained. CLINICAL HISTORY: Thyroid nodules COMPARISON: 04/15/2021 FINDINGS: The thyroid gland is heterogeneous. The right lobe of the thyroid measures 3.6 x 1.0 x 1.2 cm. The left lobe of the thyroid measures 3.0 x 0.9 x 1.1 cm. The isthmus measures 3 mm. There are 2 small subcentimeter nodules in the right lobe of the thyroid which are hypoechoic and solid consistent with TI-RADS category 4. IMPRESSION: Subcentimeter right thyroid lobe nodules. No follow-up is required. Findings are similar to prior. Reviewed, Interpreted and Dictated by Michel Sanchez MD Transcribed by Keyanna Greer Authenticated and [facility]
== END ==
LOC: RAD 14:06
PROVIDERS: PCP Nurse Practitioner Family; Visit Provider Nurse Practitioner Family
DX: E03.9 Hypothyroidism, unspecified (principal)
CPT/HCPCS: 76536

== ENCOUNTER 2024-03-01 14:52 | Emergency (ER) | payer BC, SELFPAY ==
[2024-03-01 15:58] VITALS: BP 98/60; PULSE 65; RESP 20; TEMP 36.8; O2SAT 100; BMI 34.7
--- NOTE | 2024-03-01 16:30 | EXP.UTC ---
Discharge Plan Disposition Patient Disposition: Home, Self-Care Condition: Good Prescriptions Prescriptions: New amoxicillin 500 mg capsule 500 mg PO TID 7 Days Qty: 21 0RF fluticasone propionate [Flonase Allergy Relief] 50 mcg/actuation spray,suspension 2 spray intranasal DAILY Qty: 16 0RF Rx Instructions: administer into each nostril No Action fluticasone propionate 50 mcg/actuation spray,suspension 1 spray intranasal DAILY PRN pantoprazole 40 mg tablet,delayed release (DR/EC) 40 mg PO DAILY Qty: 30 0RF Saxenda 3 mg/0.5 mL (18 mg/3 mL) pen injector 2.4 mg SQ DAILY 30 Days Qty: 12 2RF triamcinolone acetonide 0.1 % cream 1 applic topical BID 14 Days Qty: 80 0RF ondansetron HCl 4 mg tablet 4 mg PO Q8H PRN (Reason: nausea and vomiting) Qty: 20 0RF bupropion HCl 200 mg tablet sustained-release 12 hr See Rx Instructions .ROUTE .COMPLEX Qty: 60 3RF Dose Instruction: TAKE 1 TABLET 2 TIMES EACH DAY Rx Instructions: TAKE 1 TABLET 2 TIMES EACH DAY levothyroxine 125 mcg tablet See Rx Instructions .ROUTE .COMPLEX Qty: 30 3RF Dose Instruction: TAKE 1 TABLET 1 TIME EACH DAY FOR THYROID Rx Instructions: TAKE 1 TABLET 1 TIME EACH DAY FOR THYROID Referrals Follow up/Referrals: Essie Cooley APRN [Primary Care Provider] - See instructions Activity Restrictions/Add. Instructions Additional Instructions/Restrictions: *Monitor Temp, Over the counter Motrin or Tylenol as directed/as needed Tylenol every 4 hours and Motrin every 6 hours (as long as your family doctor has told you that you can take it) for fever or pain. and straight to ER if unable to lower temp less than 101.0 after medication given *Warm salt water gargles may help to soothe the throat *Throat Lozenges? *Warm fluids like tea with honey may help to soothe the throat? *Sleep elevated *Humidifier/Vaporizer Your throat swab was sent for culture. Those results are typically sent to your primary care. Be sure to follow up in 2-3 days with your family doctor/primary care physician if no improvement so they can review those result and treat if necessary. If you don?t have a primary care doctor, I recommend you get one but in the mean time, you will have to return to a walk in clinic Follow up IMMEDIATELY for new or worsening symptoms or no Noticeable improvement over the next 48-72 hours. 911 for difficulty breathing or swallowing Clinical Impressions Clinical Impression: Otitis media Stand Alone Forms Stand Alone Forms: Work/School Release Instructions Patient Instructions: Middle Ear Infection Print Language Print Language: Slovak Discharge ED Provider: [facility] [place] General Stated complaint: ear drainage, sore throat, headache Mode of Arrival: Ambulatory Source of Information: Patient Time Seen by Provider: 03/01/24 16:30 Description of Symptoms (Recalled from Triage Doc. by RN): SORE THROAT, EAR PAIN HEENT Symptoms (Recalled from RN notes): Yes (SORE THROAT, EAR PAIN) Resp Symptoms (Recalled from RN notes): No Skin Symptoms (Recalled from RN notes): No MS Symptoms (Recalled from RN notes): No Functional Status (Recalled from RN notes): WNL History of Present Illness Provider Complaint: Patient states that she has been having sore throat and pain in her left ear states that she feels like she has water in her ear and feels like it is draining so today when it was still bothering her she came in to get it checked Related Data Home Medications ?Medication ?Instructions ?Recorded ?Confirmed fluticasone propionate 50 1 spray intranasal DAILY PRN 06/02/23 10/04/23 mcg/actuation nasal spray,suspension Previous Rx's ?Medication ?Instructions ?Recorded liraglutide (weight loss) 3 mg/0.5 2.4 mg (0.4 mL) SQ DAILY insulin 06/02/23 mL (18 mg/3 mL) subcut pen resistant 30 days #12 mL injector (Saxenda) pantoprazole 40 mg tablet,delayed 40 mg PO DAILY #30 tabs 06/02/23 release triamcinolone acetonide 0.1 % 1 applic topical BID 14 days #80 06/02/23 topical cream grams ondansetron HCl 4 mg tablet 4 mg PO Q8H PRN nausea and 10/04/23 vomiting #20 tabs bupropion HCl 200 mg tablet,12 hr See Rx Instructions .Route 01/17/24 sustained-release .COMPLEX #60 tabs levothyroxine 125 mcg tablet See Rx Instructions .Route 01/17/24 .COMPLEX #30 tabs amoxicillin 500 mg capsule 500 mg PO TID 7 days #21 caps 03/01/24 fluticasone propionate 50 2 spray intranasal DAILY #16 grams 03/01/24 mcg/actuation nasal spray,suspension (Flonase Allergy Relief) Allergies Allergy/AdvReac Type Severity Reaction Status Date / Time ibuprofen [IBUPROFEN] Allergy Intermediate I-HIVES Verified 10/04/23 16:01 Worker's Comp Is this a Worker's Comp case?: No [facility] Disclaimer: The information contained in this section may have been updated after the patient was seen, as this information can be updated by other users. Medical History Insulin resistance Hypothyroidism Surgical History Hx of cholecystectomy Social History Smoking Status: Smoker, status unknown alcohol intake: never current occupational status: other Travel in the last 8 weeks: None ROS Obtained: Yes All systems reviewed & no additional complaints except as documented and Yes Systems reviewed as appropriate & no additional complaints except as documented Constitutional Constitutional: Reports system reviewed and no additional complaints, except as documented and Reports as per HPI ENT Ears, Nose, Mouth, and Throat: Reports system reviewed and no additional complaints, except as documented, Reports as per HPI, Reports otalgia and Reports sore throat Cardiovascular Cardiovascular: Reports system reviewed and no additional complaints, except as documented and Reports as per HPI Respiratory Respiratory: Reports system reviewed and no additional complaints, except as documented and Reports as per HPI Gastrointestinal Gastrointestingal: Reports system reviewed and no additional complaints, except as documented and as per HPI Physical Exam General General appearance: alert and in no apparent distress ENT ENT exam: Present mucous membranes moist Expanded ENT Exam TM/Canal exam: Left TM: erythema and bulging Nose exam: Absent sinus tenderness Throat exam: Present tonsillar erythema Respiratory Respiratory exam: Present normal lung sounds bilaterally; Absent respiratory distress or wheezes Cardiovascular Cardiovascular exam: Present regular rate, normal rhythm and normal heart sounds Neurological Exam Neurological exam: Present alert, oriented X3 and normal gait Medical Decision Making Medical Records Screening: Per USPSTF and CDC recommendations, given the prevalence of disease in our region, it is our hospital?s policy to screen for HIV and viral Hepatitis for all patients aged 18 and over and those with ongoing risk factors. Mgiuel Inquiry Pt receiving controlled substance: No Miguel was queried for this patient: No Vital Signs: 03/01/24 15:58 Temperature 98.2 F Temperature Source Oral Pulse Rate [Left Brachial] 65 Respiratory Rate 20 Blood Pressure [Left Arm] 98/60 L Blood Pressure Mean [Left Arm] 72 02 Sat by Pulse Oximetry 100 Lab Data Lab results reviewed: Yes I reviewed the patient's lab results.
[2024-03-01 16:31] LABS: UTC Strep Screen (Rapid) Negative (Negative)
[2024-03-01 16:54] VITALS: BP 98/60; PULSE 65; RESP 20; TEMP 36.8
== END 2024-03-01 16:54 | disposition home or self-care (01) ==
PROVIDERS: Emergency Provider Nurse Practitioner; PCP Nurse Practitioner Family
DX: H66.92 Otitis media, unspecified, left ear (principal); R07.0 Pain in throat
CPT/HCPCS: 87880; 99212; 99214; G0463

== ENCOUNTER 2024-03-06 13:52 | Emergency (ER) | payer BC, SELFPAY ==
--- NOTE | 2024-03-06 14:03 | XR_ITS ---
FINAL REPORT CLINICAL HISTORY: injury COMPARISON: None FINDINGS: Three views left foot show no evidence of acute displaced fracture or dislocation of the visualized bony architecture. The joint spaces appear normal. IMPRESSION: Unremarkable exam. Reviewed, Interpreted and Dictated by Mauri Ibrahim MD Transcribed by Brianna Klein Authenticated and [facility]
[2024-03-06 14:35] VITALS: BP 109/73; PULSE 64; RESP 20; TEMP 36.7; O2SAT 100; BMI 35.6
--- NOTE | 2024-03-06 14:43 | EXP.UTC ---
Discharge Plan Disposition Patient Disposition: Home, Self-Care Condition: Good Prescriptions Prescriptions: No Action fluticasone propionate 50 mcg/actuation spray,suspension 1 spray intranasal DAILY PRN pantoprazole 40 mg tablet,delayed release (DR/EC) 40 mg PO DAILY Qty: 30 0RF Saxenda 3 mg/0.5 mL (18 mg/3 mL) pen injector 2.4 mg SQ DAILY 30 Days Qty: 12 2RF triamcinolone acetonide 0.1 % cream 1 applic topical BID 14 Days Qty: 80 0RF ondansetron HCl 4 mg tablet 4 mg PO Q8H PRN (Reason: nausea and vomiting) Qty: 20 0RF bupropion HCl 200 mg tablet sustained-release 12 hr See Rx Instructions .ROUTE .COMPLEX Qty: 60 3RF Dose Instruction: TAKE 1 TABLET 2 TIMES EACH DAY Rx Instructions: TAKE 1 TABLET 2 TIMES EACH DAY levothyroxine 125 mcg tablet See Rx Instructions .ROUTE .COMPLEX Qty: 30 3RF Dose Instruction: TAKE 1 TABLET 1 TIME EACH DAY FOR THYROID Rx Instructions: TAKE 1 TABLET 1 TIME EACH DAY FOR THYROID amoxicillin 500 mg capsule 500 mg PO TID 7 Days Qty: 21 0RF fluticasone propionate [Flonase Allergy Relief] 50 mcg/actuation spray,suspension 2 spray intranasal DAILY Qty: 16 0RF Rx Instructions: administer into each nostril Referrals Follow up/Referrals: Essie Cooley APRN [Primary Care Provider] - See instructions Activity Restrictions/Add. Instructions Additional Instructions/Restrictions: *weight bearing as tolerated *RICE, Rest the extremity, Ice 15-20 minutes 3-4 times daily, Compress- wear the lyle wrap as discussed as much as possible to help reduce swelling and pain, Elevate the extremity when at rest *Lyle wrap is for support and help control swelling, use it except in the shower. Be sure that is not to tight but not to loose either *Elevate when resting? *Ibuprofen 600-800mg every 6-8 hours as needed for pain an inflammation. If need something more can take Tylenol in between doses of Ibuprofen to help Immediately follow up with your family doctor for new or worsening of symptoms, or no noticeable improvement over the next 3-5 days Clinical Impressions Clinical Impression: Foot sprain Qualifiers: Encounter type: initial encounter Laterality: left Qualified Code(s): S93.602A - Unspecified sprain of left foot, initial encounter Instructions Patient Instructions: How To Perform RICE (Rest, Ice, Compress, Elevate), DI for Foot Sprain Print Language Print Language: Telugu Discharge ED Provider: Ct Conley [facility] – [place] HPI General Stated complaint: left ankle pain Mode of Arrival: Ambulatory Source of Information: Patient Time Seen by Provider: 03/06/24 14:43 Description of Symptoms (Recalled from Triage Doc. by RN): LEFT FOOT PAIN, SWELLING, STATES PINKY TOE CURLED UNDER HER FOOT, HURTS TO WALK HEENT Symptoms (Recalled from RN notes): No Resp Symptoms (Recalled from RN notes): No Skin Symptoms (Recalled from RN notes): No MS Symptoms (Recalled from RN notes): Yes Functional Status (Recalled from RN notes): HURTS TO WALK, History of Present Illness Provider Complaint: Patient states that a couple days ago she tried to catch her niece that was falling and rolled her left foot States since then she has been having pain on the side of her foot and hurts when she walks Related Data Home Medications ?Medication ?Instructions ?Recorded ?Confirmed fluticasone propionate 50 1 spray intranasal DAILY PRN 06/02/23 10/04/23 mcg/actuation nasal spray,suspension Previous Rx's ?Medication ?Instructions ?Recorded liraglutide (weight loss) 3 mg/0.5 2.4 mg (0.4 mL) SQ DAILY insulin 06/02/23 mL (18 mg/3 mL) subcut pen resistant 30 days #12 mL injector (Saxenda) pantoprazole 40 mg tablet,delayed 40 mg PO DAILY #30 tabs 06/02/23 release triamcinolone acetonide 0.1 % 1 applic topical BID 14 days #80 06/02/23 topical cream grams ondansetron HCl 4 mg tablet 4 mg PO Q8H PRN nausea and 10/04/23 vomiting #20 tabs bupropion HCl 200 mg tablet,12 hr See Rx Instructions .Route 01/17/24 sustained-release .COMPLEX #60 tabs levothyroxine 125 mcg tablet See Rx Instructions .Route 01/17/24 .COMPLEX #30 tabs amoxicillin 500 mg capsule 500 mg PO TID 7 days #21 caps 03/01/24 fluticasone propionate 50 2 spray intranasal DAILY #16 grams 09/18/24 mcg/actuation nasal spray,suspension (Flonase Allergy Relief) Allergies Allergy/AdvReac Type Severity Reaction Status Date / Time ibuprofen [IBUPROFEN] Allergy Intermediate I-HIVES Verified 10/04/23 16:01 Worker's Comp Is this a Worker's Comp case?: No [facility] Disclaimer: The information contained in this section may have been updated after the patient was seen, as this information can be updated by other users. Medical History Insulin resistance Hypothyroidism Surgical History Hx of cholecystectomy Social History Smoking Status: Smoker, status unknown alcohol intake: never current occupational status: other Travel in the last 8 weeks: None ROS Obtained: Yes All systems reviewed & no additional complaints except as documented and Yes Systems reviewed as appropriate & no additional complaints except as documented Constitutional Constitutional: Reports system reviewed and no additional complaints, except as documented and Reports as per HPI ENT Ears, Nose, Mouth, and Throat: Reports system reviewed and no additional complaints, except as documented and Reports as per HPI Cardiovascular Cardiovascular: Reports system reviewed and no additional complaints, except as documented and Reports as per HPI Respiratory Respiratory: Reports system reviewed and no additional complaints, except as documented and Reports as per HPI Musculoskeletal Musculoskeletal: Reports system reviewed and no additional complaints, except as documented, Reports as per HPI and Reports other (pain on side of left foot x 2 days) Physical Exam General General appearance: alert and in no apparent distress ENT ENT exam: Present mucous membranes moist Respiratory Respiratory exam: Present normal lung sounds bilaterally; Absent respiratory distress or wheezes Cardiovascular Cardiovascular exam: Present regular rate, normal rhythm and normal heart sounds Expanded Lower Extremity Exam Left: Foot/toe exam: Present tenderness and swelling; Absent ecchymosis or erythema Top foot image: 1. reports pain and tenderness, mild swelling noted no discoloration or open wounds Neurovascular/Tendon exam: Present normal capillary refill Gait: observed and limited by pain Neurological Exam Neurological exam: Present alert, oriented X3 and normal gait Medical Decision Making Medical Records Screening: Per USPSTF and CDC recommendations, given the prevalence of disease in our region, it is our hospital?s policy to screen for HIV and viral Hepatitis for all patients aged 18 and over and those with ongoing risk factors. Miguel Inquiry Pt receiving controlled substance: No Miguel was queried for this patient: No Vital Signs: 03/06/24 14:35 Temperature 98.0 F Temperature Source Oral Pulse Rate [Left Brachial] 64 Respiratory Rate 20 Blood Pressure [Left Arm] 109/73 L Blood Pressure Mean [Left Arm] 85 02 Sat by Pulse Oximetry 100 Orders (Tests/Meds): ORDERS Category Date Time Status Foot XR left minimum 3 views [XR foot LT min 3V] Stat Exams 03/06/24 14:03 Taken Radiology Data #1: Image(s): Foot/Toes Image Reviewed: Yes I have reviewed radiologist's interpretation FINDINGS: Three views left foot show no evidence of acute displaced fracture or dislocation of the visualized bony architecture. The joint spaces appear normal. IMPRESSION: Unremarkable exam.
[2024-03-06 15:14] VITALS: BP 109/73; PULSE 60; RESP 20; TEMP 36.6
== END 2024-03-06 15:16 | disposition home or self-care (01) ==
PROVIDERS: Emergency Provider Nurse Practitioner; PCP Nurse Practitioner Family
DX: M79.672 Pain in left foot (principal); S93.602A Unspecified sprain of left foot, initial encounter; W20.8XXA Other cause of strike by thrown, projected or falling object, initial encounter
CPT/HCPCS: 73630; 99212; 99214; G0463

== ENCOUNTER 2024-05-03 14:30 | Emergency (ER) | payer BC, SELFPAY ==
[2024-05-03 15:30] VITALS: BP 114/71; PULSE 67; RESP 20; TEMP 36.9; O2SAT 99; BMI 34.3
--- NOTE | 2024-05-03 15:39 | ED_ITS ---
Discharge Plan Disposition Patient Disposition: Home, Self-Care Condition: Good Prescriptions Prescriptions: New amoxicillin 875 mg tablet 875 mg PO Q12H Qty: 20 0RF [id number] [Bromfed DM] 2-30-10 mg/5 mL Syrup 5 ml PO Q6H PRN (Reason: Cough) Qty: 240 0RF No Action Saxenda 3 mg/0.5 mL (18 mg/3 mL) pen injector 2.4 mg SQ DAILY 30 Days Qty: 12 2RF bupropion HCl 200 mg tablet sustained-release 12 hr See Rx Instructions .ROUTE .COMPLEX Qty: 60 3RF Dose Instruction: TAKE 1 TABLET 2 TIMES EACH DAY Rx Instructions: TAKE 1 TABLET 2 TIMES EACH DAY levothyroxine 125 mcg tablet See Rx Instructions .ROUTE .COMPLEX Qty: 30 3RF Dose Instruction: TAKE 1 TABLET 1 TIME EACH DAY FOR THYROID Rx Instructions: TAKE 1 TABLET 1 TIME EACH DAY FOR THYROID fluticasone propionate [Flonase Allergy Relief] 50 mcg/actuation spray,suspension 2 spray intranasal DAILY Qty: 16 0RF Rx Instructions: administer into each nostril cetirizine [Zyrtec] 10 mg Tablet 10 mg PO DAILY Referrals Follow up/Referrals: Essie Cooley APRN [Primary Care Provider] - See instructions Activity Restrictions/Add. Instructions Additional Instructions/Restrictions: Drink plenty of fluids. Take tylenol or ibuprofen for pain or fever. Take the medications as directed. Follow up with your regular doctor. GO TO THE ER FOR ANY WORSENING SYMPTOMS Clinical Impressions Clinical Impression: Otitis media Qualifiers: Otitis media type: unspecified Laterality: left Qualified Code(s): H66.92 - Otitis media, unspecified, left ear Stand Alone Forms Stand Alone Forms: Work/School Release Instructions Patient Instructions: Middle Ear Infection Print Language Print Language: Turkish Discharge ED Provider: Nikunj Walker [facility] General Stated complaint: ear pain sore throat Mode of Arrival: Ambulatory Source of Information: Patient Limitations: No Limitations Time Seen by Provider: 05/03/24 15:39 Description of Symptoms (Recalled from Triage Doc. by RN): PATIENT C/O SORE THROAT, EAR PAIN AND DRY COUGH X 2 DAYS HEENT Symptoms (Recalled from RN notes): Yes Resp Symptoms (Recalled from RN notes): Yes Skin Symptoms (Recalled from RN notes): No MS Symptoms (Recalled from RN notes): No Functional Status (Recalled from RN notes): WNL Related Data Home Medications ?Medication ?Instructions ?Recorded ?Confirmed cetirizine 10 mg tablet (Zyrtec) 10 mg PO DAILY 05/03/24 05/03/24 Previous Rx's ?Medication ?Instructions ?Recorded liraglutide (weight loss) 3 mg/0.5 2.4 mg (0.4 mL) SQ DAILY insulin 06/02/23 mL (18 mg/3 mL) subcut pen resistant 30 days #12 mL injector (Saxenda) bupropion HCl 200 mg tablet,12 hr See Rx Instructions .Route 01/17/24 sustained-release .COMPLEX #60 tabs levothyroxine 125 mcg tablet See Rx Instructions .Route 01/17/24 .COMPLEX #30 tabs fluticasone propionate 50 2 spray intranasal DAILY #16 grams 03/01/24 mcg/actuation nasal spray,suspension (Flonase Allergy Relief) amoxicillin 875 mg tablet 875 mg PO Q12H #20 tabs 05/03/24 [id number]-[id number] 5 ml PO Q6H PRN Cough #240 mL 05/03/24 2 mg-30 mg-10 mg/5 mL oral syrup (Bromfed DM) Allergies Allergy/AdvReac Type Severity Reaction Status Date / Time ibuprofen (IBUPROFEN) Allergy Intermediate I-HIVES Verified 10/04/23 16:01 Worker's Comp Is this a Worker's Comp case?: No [facility] Disclaimer: The information contained in this section may have been updated after the patient was seen, as this information can be updated by other users. Medical History Insulin resistance Hypothyroidism Surgical History Hx of cholecystectomy Social History Smoking Status: Smoker, status unknown alcohol intake: never current occupational status: other ROS Obtained: Yes All systems reviewed & no additional complaints except as documented Constitutional Constitutional: Denies chills, Reports fever(s) and Reports poor appetite Eyes Eyes: Denies eye discharge ENT Ears, Nose, Mouth, and Throat: Denies ear discharge, Reports otalgia, Denies hearing loss, Denies sinus pain and Reports sore throat Cardiovascular Cardiovascular: Denies chest pain and Denies dyspnea Respiratory Respiratory: Denies chest congestion, Reports cough and Denies dyspnea Gastrointestinal Gastrointestingal: Denies abdominal pain, diarrhea, nausea or vomiting Musculoskeletal Musculoskeletal: Denies arthralgias Integumentary/Breasts Skin/Breast: Denies rash Physical Exam General General appearance: alert and in no apparent distress Head Head exam: atraumatic, normocephalic and normal inspection Eye Eye exam: Present normal appearance; Absent PERRL or EOMI ENT ENT exam: Present mucous membranes moist and normal external ear exam Expanded ENT Exam TM/Canal exam: Bilateral TM: erythema, bulging and effusion Nose exam: Absent sinus tenderness Nasal speculum exam: Bilateral: normal Mouth exam: Present normal external inspection and other; Absent drooling Teeth exam: Present normal inspection Throat exam: Present tonsillar erythema and tonsillomegaly Neck Neck exam: Present normal inspection, full ROM and trachea midline; Absent tenderness, meningismus or lymphadenopathy Chest Chest inspection: Present normal inspection and symmetric chest wall rise; Absent tenderness Respiratory Respiratory exam: Present normal lung sounds bilaterally; Absent respiratory distress, wheezes or stridor Cardiovascular Cardiovascular exam: Present regular rate, normal rhythm and normal heart sounds; Absent tachycardia or irregular rhythm Abdominal Exam Abdominal exam: Present soft and normal bowel sounds; Absent distention, tenderness, guarding, rebound or rigidity Extremities Exam Extremities exam: Present normal inspection and normal capillary refill; Absent tenderness, joint swelling or calf tenderness Back Exam Back exam: Present normal inspection and full ROM; Absent tenderness, CVA tenderness (R) or CVA tenderness (L) Neurological Exam Neurological exam: Present alert, oriented X3, CN II-XII intact, normal gait and reflexes normal; Absent motor sensory deficit Psychiatric Psychiatric exam: Present normal affect and normal mood Skin Skin exam: Present warm, dry, intact and normal color Lymphatic Lymphatic Findings: no adenopathy Medical Decision Making Medical Records Medical records reviewed: No I reviewed the patient's medical records. Screening: Per USPSTF and CDC recommendations, given the prevalence of disease in our region, it is our hospital?s policy to screen for HIV and viral Hepatitis for all patients aged 18 and over and those with ongoing risk factors. Miguel Inquiry Pt receiving controlled substance: No Vital Signs: 05/03/24 15:30 Temperature 98.4 F Temperature Source Oral Pulse Rate [Left Brachial] 67 Respiratory Rate 20 Blood Pressure [Left Arm] 114/71 Blood Pressure Mean [Left Arm] 85 Blood Pressure Source [Left Arm] Automatic Cuff Blood Pressure Position [Left Arm] Sitting 02 Sat by Pulse Oximetry 99 Oxygen Delivery Method Room Air
[2024-05-03 15:42] LABS: UTC Strep Screen (Rapid) Negative (Negative)
[2024-05-03 16:26] VITALS: BP 114/71; PULSE 67; RESP 20; TEMP 36.9; O2SAT 99
== END 2024-05-03 16:27 | disposition home or self-care (01) ==
PROVIDERS: Emergency Provider Nurse Practitioner Family; PCP Nurse Practitioner Family
DX: H66.92 Otitis media, unspecified, left ear (principal)
CPT/HCPCS: 87880; 99213; G0381

== ENCOUNTER 2024-05-29 14:47 | Emergency (ER) | payer BC, SELFPAY ==
[2024-05-29 14:55] VITALS: BP 126/83; PULSE 66; RESP 20; TEMP 36.7; O2SAT 100; BMI 35.3
[2024-05-29 15:20] LABS: UTC Strep Screen (Rapid) Negative (Negative)
--- NOTE | 2024-05-29 15:25 | ED_ITS ---
Discharge Plan Disposition Patient Disposition: Home, Self-Care Condition: Good Prescriptions Prescriptions: New cefdinir 300 mg capsule 300 mg PO BID Qty: 20 0RF methylprednisolone [Medrol (Nathan)] 4 mg tablets,dose pack See Rx Instructions .Route .COMPLEX 6 Days Qty: 21 0RF Rx Instructions: taper pack; No Action Saxenda 3 mg/0.5 mL (18 mg/3 mL) pen injector 2.4 mg SQ DAILY 30 Days Qty: 12 2RF bupropion HCl 200 mg tablet sustained-release 12 hr See Rx Instructions .ROUTE .COMPLEX Qty: 60 3RF Dose Instruction: TAKE 1 TABLET 2 TIMES EACH DAY Rx Instructions: TAKE 1 TABLET 2 TIMES EACH DAY levothyroxine 125 mcg tablet See Rx Instructions .ROUTE .COMPLEX Qty: 30 3RF Dose Instruction: TAKE 1 TABLET 1 TIME EACH DAY FOR THYROID Rx Instructions: TAKE 1 TABLET 1 TIME EACH DAY FOR THYROID cetirizine [Zyrtec] 10 mg Tablet 10 mg PO DAILY Referrals Follow up/Referrals: Essie Cooley APRN [Primary Care Provider] - See instructions Activity Restrictions/Add. Instructions Additional Instructions/Restrictions: *Monitor Temp, Over the counter Motrin or Tylenol as directed/as needed Tylenol every 4 hours and Motrin every 6 hours (as long as your family doctor has told you that you can take it) for fever or pain. and straight to ER if unable to lower temp less than 101.0 after medication given *Warm salt water gargles may help to soothe the throat *Throat Lozenges? *Warm fluids like tea with honey may help to soothe the throat? *Sleep elevated *Humidifier/Vaporizer *Flonase 2 sprays in each nostril daily but be aware that it may take 2-3 days before you notice improvement *Bromfed may cause drowsiness. Know how it effects you (your child) before driving, caring for small child, or sending your child to school. Not other antihistamines/allergy medications while taking bromfed Your throat swab was sent for culture. Those results are typically sent to your primary care. Be sure to follow up in 2-3 days with your family doctor/primary care physician if no improvement so they can review those result and treat if necessary. If you don?t have a primary care doctor, I recommend you get one but in the mean time, you will have to return to a walk in clinic Follow up IMMEDIATELY for new or worsening symptoms or no Noticeable improvement over the next 48-72 hours. 911 for difficulty breathing or swallowing Clinical Impressions Clinical Impression: Otitis media Instructions Patient Instructions: Middle Ear Infection Print Language Print Language: Chinese Discharge ED Provider: Ct Conley [facility] [place] HPI General Stated complaint: sore throat ear pain Mode of Arrival: Ambulatory Source of Information: Patient Limitations: No Limitations Time Seen by Provider: 05/29/24 15:27 Description of Symptoms (Recalled from Triage Doc. by RN): PATIENT C/O BILATERAL EAR PAIN AND SORE THROAT THAT STARTED THIS MORNING HEENT Symptoms (Recalled from RN notes): Yes Resp Symptoms (Recalled from RN notes): No Skin Symptoms (Recalled from RN notes): No MS Symptoms (Recalled from RN notes): No Functional Status (Recalled from RN notes): WNL History of Present Illness Provider Complaint: Patient states that she has been having sore throat and ear pain States worse today and continued to get worse since this morning so this evening she came in to get checked Related Data Home Medications ?Medication ?Instructions ?Recorded ?Confirmed cetirizine 10 mg tablet (Zyrtec) 10 mg PO DAILY 05/03/24 05/29/24 Previous Rx's ?Medication ?Instructions ?Recorded liraglutide (weight loss) 3 mg/0.5 2.4 mg (0.4 mL) SQ DAILY insulin 06/02/23 mL (18 mg/3 mL) subcut pen resistant 30 days #12 mL injector (Saxenda) bupropion HCl 200 mg tablet,12 hr See Rx Instructions .Route 01/17/24 sustained-release .COMPLEX #60 tabs levothyroxine 125 mcg tablet See Rx Instructions .Route 01/17/24 .COMPLEX #30 tabs cefdinir 300 mg capsule 300 mg PO BID #20 caps 05/29/24 methylprednisolone 4 mg tablets in See Rx Instructions .Route 05/29/24 a dose pack (Medrol (Nathan)) .COMPLEX 6 days #21 tabs Allergies Allergy/AdvReac Type Severity Reaction Status Date / Time ibuprofen (IBUPROFEN) Allergy Intermediate I-HIVES Verified 05/29/24 13:41 Worker's Comp Is this a Worker's Comp case?: No [facility] Disclaimer: The information contained in this section may have been updated after the patient was seen, as this information can be updated by other users. Medical History Hypothyroidism Insulin resistance Surgical History Hx of cholecystectomy Social History Smoking Status: Smoker, status unknown alcohol intake: never current occupational status: other Travel in the last 8 weeks: None Have you lived/traveled outside [place] in past 30 days?: No Contact w/someone who lives/traveled outside [place] past 30 days?: No Exposure to someone with infectious disease in past 14 days?: No Do you have a fever (greater than 100.4 F or 38 C)?: No Have you tested positive for COVID-19: No Exposed to someone with COVID-19 in past 14 days?: No Do you have a sore throat?: Yes Do you have a cough?: Yes Do you have any weakness?: No Do you have any diarrhea?: No Are you experiencing any unusual bleeding?: No Do you have any muscle aches/pain?: No Do you have any abdominal pain?: No Are you experiencing loss of taste or smell?: No ROS Obtained: Yes All systems reviewed & no additional complaints except as documented and Yes Systems reviewed as appropriate & no additional complaints except as documented Constitutional Constitutional: Reports system reviewed and no additional complaints, except as documented and Reports as per HPI ENT Ears, Nose, Mouth, and Throat: Reports system reviewed and no additional complaints, except as documented, Reports as per HPI, Reports otalgia and Reports sore throat Cardiovascular Cardiovascular: Reports system reviewed and no additional complaints, except as documented and Reports as per HPI Respiratory Respiratory: Reports system reviewed and no additional complaints, except as documented and Reports as per HPI Gastrointestinal Gastrointestingal: Reports system reviewed and no additional complaints, except as documented and as per HPI Musculoskeletal Musculoskeletal: Reports system reviewed and no additional complaints, except as documented and Reports as per HPI Physical Exam General General appearance: alert and in no apparent distress ENT ENT exam: Present mucous membranes moist Expanded ENT Exam TM/Canal exam: Left TM: erythema and Bilateral TM: bulging Nose exam: Absent sinus tenderness Throat exam: Present tonsillar erythema; Absent tonsillomegaly or tonsillar exudate Respiratory Respiratory exam: Present normal lung sounds bilaterally; Absent respiratory distress or wheezes Cardiovascular Cardiovascular exam: Present regular rate, normal rhythm and normal heart sounds Abdominal Exam Abdominal exam: Present soft and normal bowel sounds; Absent distention or tenderness Neurological Exam Neurological exam: Present alert, oriented X3 and normal gait Medical Decision Making Medical Records Screening: Per USPSTF and CDC recommendations, given the prevalence of disease in our region, it is our hospital?s policy to screen for HIV and viral Hepatitis for all patients aged 18 and over and those with ongoing risk factors. Miguel Inquiry Pt receiving controlled substance: No Miguel was queried for this patient: No Vital Signs: 05/29/24 14:55 Temperature 98.0 F Temperature Source Oral Pulse Rate [Left Brachial] 66 Respiratory Rate 20 Blood Pressure [Left Arm] 126/83 Blood Pressure Mean [Left Arm] 97 Blood Pressure Source [Left Arm] Automatic Cuff Blood Pressure Position [Left Arm] Sitting 02 Sat by Pulse Oximetry 100 Oxygen Delivery Method Room Air Lab Data Lab results reviewed: Yes I reviewed the patient's lab results. Lab Results 05/29/24 15:03: Strep Scn Rapid Clinic Negative Orders (Tests/Meds): ORDERS Category Date Time Status Strep Screen Confirmation Stat Micro 05/29/24 15:03 Received
[2024-05-29 15:45] VITALS: BP 126/83; PULSE 66; RESP 20; TEMP 36.7; O2SAT 100
== END 2024-05-29 15:49 | disposition home or self-care (01) ==
PROVIDERS: Emergency Provider Nurse Practitioner; PCP Nurse Practitioner Family
DX: H66.93 Otitis media, unspecified, bilateral (principal)
CPT/HCPCS: 87880; 99213; G0381

== ENCOUNTER 2024-11-24 22:47 | Emergency (ER) | payer BC, SELFPAY ==
--- OUTSIDE RECORDS SUMMARY | 2024-02-08 10:45 | XMS_ITS ---
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 Heating Unit Mechanic Name Role Phone JANKI SAMUEL Unavailable [phone] SAULO LUTZ Unavailable [phone] REASON FOR VISIT cyst Encounters Encounter Location Date Provider Diagnosis [id number] [facility] [address] [facility] [place] [place] [id number] 02/08/2024 SAULO LUTZ Plan Of Treatment No Information Progress Notes * Guera MCGOVERN ADOB: [birth year] (29 yo F)Acc No.[id number]:02/08/2024 PROGRESS NOTE Patient: Guera STONE A Provider: Marilu LUTZ MD :1995 A ge:28 Y S ex:Female Date:02/08/2024 C HN#:[id number] Address:[address] [place] [address] Subjective: * Chief Complaints: * 1 . Cyst. * Active Problem List ?Problem List has not been verified* Medical History: Objective: * Vitals: Assessment: Plan: * Treatment: * * This progress note has not b een verified nor is it considered complete until locked and signed by the provider. Sign off status: Pending * Provider: Marilu LUTZ MD Date: 02/08/2024 Generated for Allison grullon/Phoebe/eTransmitting on: 0 11/24/2024 10:55 PM EDT
--- OUTSIDE RECORDS SUMMARY | 2024-11-24 22:55 | XMS_ITS | Data Portability ---
Author Organization [facility] Address [address] [place] [address] Assessment No assessment recorded. Plan of Treatment Reminders Order Date Submit Date Provider Last Modified By Organization Details Last Modified Time Details Appointments None recorded. Lab CBC w/ diff 2022 023 [facility], [address], [address], [place], [address], 3 20:08:36 CMP, serum or plasma 2022 023 [facility], [address], [address], [place], [address], 3 20:08:37 thyroid panel, serum 2022 023 [facility], [address], [address], [place], [address], 3 20:08:38 TSH + free T4, serum 2021 022 [facility], [address], [address], [place], [address], 2 08:21:19 TSH + free T4, serum 2021 022 [facility], [address], [address], [place], [address], 2 16:11:50 HbA1c (hemoglobin A1c), blood 2021 022 [facility], [address], [address], [place], [address], 16:11:50 CBC w/ diff 2021 [facility], [address], [address], [place], [address], 16:11:48 CMP, serum or plasma 2021 [facility], [address], [address], [place], [address], 16:11:49 lipid panel, serum 2021 [facility], [address], [address], [place], [address], 16:11:50 Referral None recorded. Procedures None recorded. Surgeries None recorded. Imaging US, thyroid - not needing until April 2022, thank you [address] Central[facility] Scheduling, [address] , [place], [address], 15:06:53 Medication Orders levothyroxi ne 112 mcg tablet 2021 [facility], [address] [place] [address], [id number], 10:41:22 cetirizine 10 mg tablet 2021 [facility], [address] [place] [address], [id number], 3 13:55:38 fluticasone propionate 50 mcg/actuati on nasal spray,suspe nsion 2021 [facility], [address] [place] [address], [id number], 3 13:55:39 Saxenda 3 mg/0.5 mL (18 mg/3 mL) subcutaneou s pen injector 2021 [facility], [address] [place] [address], [id number], 10:41:23 bupropion HCl SR 200 mg tablet,12 hr sustained-r elease 2021 [place] [facility], [address] [place] [address], [id number], 13:55:43 Patient TargetsNo targets recorded. Patient Instructions Encounter Date Encounter Id Patient Instructions Last Modified By Organization Details Last Modified Time 03/23/2022 [id number] hypothyroidism: care instructions [email or web address] Not available 03/23/2022 10:34:10 seasonal allergies: care instructions [email or web address] Not available 03/23/2022 10:34:10 prediabetes education [email or web address] Not available 03/23/2022 10:34:09 anxiety disorder : care instructions Not available 03/23/2022 10:34:11 depression treatment: care instructions [email or web address] Not available 03/23/2022 10:34:10 04/22/2022 [id number] hypothyroidism: care instructions Not available 05/05/2022 20:19:22 Reason for Referral None Reported. Results Created Date Observation Date Name Description Value Unit Range Abnormal Flag Note LastModifiedBy Organization Detail LastModifiedTime 03/23/2003/24/2022 CBC/D /PLT WBC 5.8 x10e3 /uL 3.4-10 .8 Not Available [facility] ([facility]) [address] [facility], [place], [address], 03/24/2022 16:11:48 03/23/2003/24/2022 CBC/D /PLT RBC 4.56 x10e6 /uL 3.77-5 .28 Not Available [facility] ([facility]) [address] [facility], [place], [address], 03/24/2022 16:11:48 03/23/2004 0403/24/2022 CBC/D /PLT hemoglobin 13.3 g/dL 11.1-1 5.9 Not Available [facility] ([facility]) [address] [place], [address], 03/24/2022 16:11:48 03/23/20 22 03/24/2022 CBC/D /PLT hematocrit 40.9 % 34.0-4 6.6 Not Available [facility] ([facility]) [address] [facility], [place], [address], 03/24/2022 16:11:48 03/23/20 22 03/24/2022 CBC/D /PLT MCV 90 fL 79-97 Not Available [facility] ([facility]) [address] [place], [address], 03/24/2022 16:11:48 03/23/20 22 03/24/2022 CBC/D /PLT MCH 29.2 pg 26.6-3 3.0 Not Available [facility] ([facility]) [address] [place], [address], 03/24/2022 16:11:48 03/23/20 22 03/24/2022 CBC/D /PLT MCHC 32.5 g/dL 31.5-3 5.7 Not Available [facility] ([facility]) [address] [place], [address], 03/24/2022 16:11:48 03/23/20 22 03/24/2022 CBC/D /PLT RDW 13.1 % 11.7-1 5.4 Not Available [facility] ([facility]) [address] [place], [address], 03/24/2022 16:11:48 03/23/20 22 03/24/2022 CBC/D /PLT platelets 340 x10e3 /uL 150-45 0 Not Available [facility] ([facility]) [address] [place], [address], 03/24/2022 16:11:48 03/23/20 22 03/24/2022 CBC/D /PLT neutrophils 51 % not estab. Not Available [facility] ([facility]) [address] [place], [address], 03/24/2022 16:11:48 03/23/20 22 03/24/2022 CBC/D /PLT lymphs 33 % not estab. Not Available [facility] ([facility]) [address] [facility] [place], [address], 03/24/2022 16:11:48 03/23/20 22 03/24/2022 CBC/D /PLT monocytes 11 % not estab. Not Available [facility] ([facility]) [address] [facility] [place], [address], 03/24/2022 16:11:48 03/23/20 22 03/24/2022 CBC/D /PLT eos 4 % not estab. Not Available [facility] ([facility]) [address] [facility] [place], [address], 03/24/2022 16:11:48 03/23/20 22 03/24/2022 CBC/D /PLT basos 1 % not estab. Not Available [facility] ([facility]) [address] [facility], [place], [address], 03/24/2022 16:11:48 03/23/20 22 03/24/2022 CBC/D /PLT immature cells MANAGER PROGRESSIVE CARE Not Available [facility] ([facility]) [address] [facility] [place], [address], 03/24/2022 16:11:48 03/23/20 22 03/24/2022 CBC/D /PLT neutrophils (absolute) 3.0 x10e3 /uL 1.4-7. 0 Not Available [facility] ([facility]) [address] [facility] [place], [address], 03/24/2022 16:11:48 03/23/20 22 03/24/2022 CBC/D /PLT lymphs (absolute) 1.9 x10e3 /uL 0.7-3. 1 Not Available [facility] ([facility]) [address] [facility], [place], [address], 03/24/2022 16:11:48 03/23/20 22 03/24/2022 CBC/D /PLT monocytes(ab solute) 0.6 x10e3 /uL 0.1-0. 9 Not Available [facility] ([facility]) [address] [place], [address], 03/24/2022 16:11:48 03/23/20 22 03/24/2022 CBC/D /PLT eos (absolute) 0.2 x10e3 /uL 0.0-0. 4 Not Available [facility] ([facility]) [address] [facility], [place], [address], 03/24/2022 16:11:48 03/23/20 22 03/24/2022 CBC/D /PLT baso (absolute) 0.1 x10e3 /uL 0.0-0. 2 Not Available [facility] ([facility]) [address] [place], [address], 03/24/2022 16:11:48 03/23/20 22 03/24/2022 CBC/D /PLT immature granulocytes 0 % not estab. Not Available [facility] ([facility]) [address] [place], [address], 03/24/2022 16:11:48 03/23/20 22 03/24/2022 CBC/D /PLT immature grans (abs) 0.0 x10e3 /uL 0.0-0. 1 Not Available [facility] ([facility]) [address] [place], [address], 03/24/2022 16:11:48 03/23/20 22 03/24/2022 CBC/D /PLT NRBC MANAGER PROGRESSIVE CARE Not Available [facility] ([facility]) [address], [place], [address], 03/24/2022 16:11:48 03/23/20 22 03/24/2022 CBC/D /PLT hematology comments: MANAGER PROGRESSIVE CARE Not Available [facility] ([facility]) [address], [place], [address], 03/24/2022 16:11:48 03/23/20 22 03/24/2022 CMP14 +EGFR glucose 79 mg/dL 70-99 Ple ase note refer ence brian medley Not Available [facility] ([facility]) [address], [place], [address], 03/24/2022 16:11:49 03/23/20 22 03/24/2022 CMP14 +EGFR BUN 11 mg/dL 6-20 Not Available [facility] ([facility]) [address], [place], [address], 03/24/2022 16:11:49 03/23/20 22 03/24/2022 CMP14 +EGFR creatinine 1.12 mg/dL 0.57-1 .00 above high normal Not Available [facility] ([facility]) [address], [place], [address], 03/24/2022 16:11:49 03/23/20 22 03/24/2022 CMP14 +EGFR eGFR 68 mL/mi n/1.7 3 >59 Not Available [facility] ([facility]) [address], [place], [address], 03/24/2022 16:11:49 03/23/20 22 03/24/2022 CMP14 +EGFR BUN/creatini ne ratio 10 9-23 Not Available [facility] ([facility]) [address], [place], [address], 03/24/2022 16:11:49 03/23/20 22 03/24/2022 CMP14 +EGFR sodium 139 mmol/ L 134-14 4 Not Available [facility] ([facility]) [address] [facility], [place], [address], 03/24/2022 16:11:49 03/23/20 22 03/24/2022 CMP14 +EGFR potassium 4.8 mmol/ L 3.5-5. 2 Not Available [facility] ([facility]) [address] [facility], [place], [address], 03/24/2022 16:11:49 03/23/20 22 03/24/2022 CMP14 +EGFR chloride 105 mmol/ L 96-106 Not Available [facility] ([facility]) [address] [facility], [place], [address], 03/24/2022 16:11:49 03/23/20 22 03/24/2022 CMP14 +EGFR carbon dioxide, total 24 mmol/ L 20-29 Not Available [facility] ([facility]) [address] [facility], [place], [address], 03/24/2022 16:11:49 03/23/20 22 03/24/2022 CMP14 +EGFR calcium 9.7 mg/dL 8.7-10 .2 Not Available [facility] ([facility]) [address] [place], [address], 03/24/2022 16:11:49 03/23/20 22 03/24/2022 CMP14 +EGFR protein, total 7.4 g/dL 6.0-8. 5 Not Available [facility] ([facility]) [address] [place], [address], 03/24/2022 16:11:49 03/23/20 22 03/24/2022 CMP14 +EGFR albumin 4.9 g/dL 3.9-5. 0 Not Available [facility] ([facility]) [address] [facility] [place], [address], 03/24/2022 16:11:49 03/23/20 22 03/24/2022 CMP14 +EGFR globulin, total 2.5 g/dL 1.5-4. 5 Not Available [facility] ([facility]) [address] [facility] [place], [address], 03/24/2022 16:11:49 03/23/20 22 03/24/2022 CMP14 +EGFR A/G ratio 2.0 1.2-2. 2 Not Available [facility] ([facility]) [address] [facility] [place], [address], 03/24/2022 16:11:49 03/23/20 22 03/24/2022 CMP14 +EGFR bilirubin, total 0.2 mg/dL 0.0-1. 2 Not Available [facility] ([facility]) [address] [facility] [place], [address], 03/24/2022 16:11:49 03/23/20 22 03/24/2022 CMP14 +EGFR alkaline phosphatase 59 IU/L 44-121 Not Available [facility] ([facility]) [address] [facility] [place], [address], 03/24/2022 16:11:49 03/23/20 22 03/24/2022 CMP14 +EGFR AST (SGOT) 17 IU/L 0-40 Not Available [facility] ([facility]) [address] [facility] [place], [address], 03/24/2022 16:11:49 03/23/20 22 03/24/2022 CMP14 +EGFR ALT (SGPT) 15 IU/L 0-32 Not Available [facility] ([facility]) [address] [facility] [place], [address], 03/24/2022 16:11:49 03/23/20 22 03/24/2022 TSH+F REE T4 TSH 6.180 uIU/m L 0.450- 4.500 above high normal Not Available [facility] ([facility]) [address] [place], [address], 03/24/2022 16:11:49 03/23/20 22 03/24/2022 TSH+F REE T4 T4,free(dire ct) 1.22 NG/dL 0.82-1 .77 Not Available [facility] ([facility]) [address] [place], [address], 03/24/2022 16:11:49 03/23/20 22 03/24/2022 LIPID PANEL cholesterol, total 159 mg/dL 100-19 9 Not Available [facility] ([facility]) [address] [place], [address], 03/24/2022 16:11:50 03/23/20 22 03/24/2022 LIPID PANEL triglyceride s 93 mg/dL 0-149 Not Available [facility] ([facility]) [address] [place], [address], 03/24/2022 16:11:50 03/23/20 22 03/24/2022 LIPID PANEL HDL cholesterol 58 mg/dL >39 Not Available [facility] ([facility]) [address] [place], [address], 03/24/2022 16:11:50 03/23/20 22 03/24/2022 LIPID PANEL VLDL cholesterol nicanor 17 mg/dL 5-40 Not Available [facility] ([facility]) [address] [place], [address], 03/24/2022 16:11:50 03/23/20 22 03/24/2022 LIPID PANEL LDL chol calc ([facility]) 84 mg/dL 0-99 Not Available [facility] ([facility]) [address] [place], [address], 03/24/2022 16:11:50 03/23/20 22 03/24/2022 LIPID PANEL comment: MANAGER PROGRESSIVE CARE Not Available [facility] ([facility]) [address] [place], [address], 03/24/2022 16:11:50 03/23/20 22 03/24/2022 HEMOG LOBIN A1C hemoglobin A1C 5.1 % 4.8-5. 6 Predi abete s: 5.7 - 6.4 Diabe courtney: >6.4 Glyce jamilah contr ol for adult s with diabe courtney: <7.0 Not Available [facility] ([facility]) [address] [place], [address], 03/24/2022 16:11:50 04/22/20 22 04/23/2022 TSH+F REE T4 TSH 5.600 uIU/m L 0.450- 4.500 above high normal Not Available [facility] ([facility]) [address] [place], [address], 04/23/2022 08:21:19 04/22/20 22 04/23/2022 TSH+F REE T4 T4,free(dire ct) 1.32 NG/dL 0.82-1 .77 Not Available [facility] ([facility]) [address] [place], [address], 04/23/2022 08:21:19 09/02/19 23 09/02/2022 CBC/D /PLT WBC 5.4 x10e3 /uL 3.4-10 .8 Not Available [facility] ([facility]) [address] [place], [address], 09/02/2022 20:08:36 09/02/19 23 09/02/2022 CBC/D /PLT RBC 4.60 x10e6 /uL 3.77-5 .28 Not Available [facility] ([facility]) [address] [place], [address], 09/02/2022 20:08:36 09/02/19 23 09/02/2022 CBC/D /PLT hemoglobin 13.8 g/dL 11.1-1 5.9 Not Available [facility] ([facility]) [address] [place], [address], 09/02/2022 20:08:36 09/02/19 23 09/02/2022 CBC/D /PLT hematocrit 40.6 % 34.0-4 6.6 Not Available [facility] ([facility]) [address] [place], [address], 09/02/2022 20:08:36 09/02/19 23 09/02/2022 CBC/D /PLT MCV 88 fL 79-97 Not Available [facility] ([facility]) [address] [place], [address], 09/02/2022 20:08:36 09/02/19 23 09/02/2022 CBC/D /PLT MCH 30.0 pg 26.6-3 3.0 Not Available [facility] ([facility]) [address] [place], [address], 09/02/2022 20:08:36 09/02/19 23 09/02/2022 CBC/D /PLT MCHC 34.0 g/dL 31.5-3 5.7 Not Available [facility] ([facility]) [address] [place], [address], 09/02/2022 20:08:36 09/02/19 23 09/02/2022 CBC/D /PLT RDW 13.0 % 11.7-1 5.4 Not Available [facility] ([facility]) [address] [place], [address], 09/02/2022 20:08:36 09/02/19 23 09/02/2022 CBC/D /PLT platelets 316 x10e3 /uL 150-45 0 Not Available [facility] ([facility]) [address] [facility] [place], [address], 09/02/2022 20:08:36 09/02/19 23 09/02/2022 CBC/D /PLT neutrophils 54 % not estab. Not Available [facility] ([facility]) [address] [facility] [place], [address], 09/02/2022 20:08:36 09/02/19 23 09/02/2022 CBC/D /PLT lymphs 32 % not estab. Not Available [facility] ([facility]) [address] [facility] [place], [address], 09/02/2022 20:08:36 09/02/19 23 09/02/2022 CBC/D /PLT monocytes 11 % not estab. Not Available [facility] ([facility]) [address] [facility] [place], [address], 09/02/2022 20:08:36 09/02/19 23 09/02/2022 CBC/D /PLT eos 2 % not estab. Not Available [facility] ([facility]) [address] [facility] [place], [address], 09/02/2022 20:08:36 09/02/19 23 09/02/2022 CBC/D /PLT basos 1 % not estab. Not Available [facility] ([facility]) [address] [facility] [place], [address], 09/02/2022 20:08:36 09/02/19 23 09/02/2022 CBC/D /PLT immature cells MANAGER PROGRESSIVE CARE Not Available [facility] ([facility]) [address] [facility] [place], [address], 09/02/2022 20:08:36 09/02/19 23 09/02/2022 CBC/D /PLT neutrophils (absolute) 3.0 x10e3 /uL 1.4-7. 0 Not Available [facility] ([facility]) [address] [facility], [place], [address], 09/02/2022 20:08:36 09/02/19 23 09/02/2022 CBC/D /PLT lymphs (absolute) 1.7 x10e3 /uL 0.7-3. 1 Not Available [facility] ([facility]) [address] [facility] [place], [address], 09/02/2022 20:08:36 09/02/19 23 09/02/2022 CBC/D /PLT monocytes(ab solute) 0.6 x10e3 /uL 0.1-0. 9 Not Available [facility] ([facility]) [address] [place], [address], 09/02/2022 20:08:36 09/02/19 23 09/02/2022 CBC/D /PLT eos (absolute) 0.1 x10e3 /uL 0.0-0. 4 Not Available [facility] ([facility]) [address] [place], [address], 09/02/2022 20:08:36 09/02/19 23 09/02/2022 CBC/D /PLT baso (absolute) 0.0 x10e3 /uL 0.0-0. 2 Not Available [facility] ([facility]) [address] [place], [address], 09/02/2022 20:08:36 09/02/19 23 09/02/2022 CBC/D /PLT immature granulocytes 0 % not estab. Not Available [facility] ([facility]) [address] [place], [address], 09/02/2022 20:08:36 09/02/19 23 09/02/2022 CBC/D /PLT immature grans (abs) 0.0 x10e3 /uL 0.0-0. 1 Not Available [facility] ([facility]) [address] [place], [address], 09/02/2022 20:08:36 09/02/19 23 09/02/2022 CBC/D /PLT NRBC MANAGER PROGRESSIVE CARE Not Available [facility] ([facility]) [address] [place], [address], 09/02/2022 20:08:36 09/02/19 23 09/02/2022 CBC/D /PLT hematology comments: MANAGER PROGRESSIVE CARE Not Available [facility] ([facility]) [address], [place], [address], 09/02/2022 20:08:36 09/02/19 23 09/02/2022 CMP14 +EGFR glucose 76 mg/dL 70-99 Not Available [facility] ([facility]) [address] [facility] [place], [address], 09/02/2022 20:08:37 09/02/19 23 09/02/2022 CMP14 +EGFR BUN 8 mg/dL 6-20 Not Available [facility] ([facility]) [address] [facility] [place], [address], 09/02/2022 20:08:37 09/02/19 23 09/02/2022 CMP14 +EGFR creatinine 0.95 mg/dL 0.57-1 .00 Not Available [facility] ([facility]) [address] [facility] [place], [address], 09/02/2022 20:08:37 09/02/19 23 09/02/2022 CMP14 +EGFR eGFR 83 mL/mi n/1.7 3 >59 Not Available [facility] ([facility]) [address] [facility] [place], [address], 09/02/2022 20:08:37 09/02/19 23 09/02/2022 CMP14 +EGFR BUN/creatini ne ratio 8 9-23 below low normal Not Available [facility] ([facility]) [address] [facility], [place], [address], 09/02/2022 20:08:37 09/02/19 23 09/02/2022 CMP14 +EGFR sodium 140 mmol/ L 134-14 4 Not Available [facility] ([facility]) [address] [facility], [place], [address], 09/02/2022 20:08:37 09/02/19 23 09/02/2022 CMP14 +EGFR potassium 4.4 mmol/ L 3.5-5. 2 Not Available [facility] ([facility]) [address] [facility], [place], [address], 09/02/2022 20:08:37 09/02/19 23 09/02/2022 CMP14 +EGFR chloride 104 mmol/ L 96-106 Not Available [facility] ([facility]) [address] [place], [address], 09/02/2022 20:08:37 09/02/19 23 09/02/2022 CMP14 +EGFR carbon dioxide, total 26 mmol/ L 20-29 Not Available [facility] ([facility]) [address] [facility], [place], [address], 09/02/2022 20:08:37 09/02/19 23 09/02/2022 CMP14 +EGFR calcium 10.3 mg/dL 8.7-10 .2 above high normal Not Available [facility] ([facility]) [address] [place], [address], 09/02/2022 20:08:37 09/02/19 23 09/02/2022 CMP14 +EGFR protein, total 7.1 g/dL 6.0-8. 5 Not Available [facility] ([facility]) [address] [place], [address], 09/02/2022 20:08:37 09/02/19 23 09/02/2022 CMP14 +EGFR albumin 4.8 g/dL 3.9-5. 0 Not Available [facility] ([facility]) [address] [facility], [place], [address], 09/02/2022 20:08:37 09/02/19 23 09/02/2022 CMP14 +EGFR globulin, total 2.3 g/dL 1.5-4. 5 Not Available [facility] ([facility]) [address] [facility] [place], [address], 09/02/2022 20:08:37 09/02/19 23 09/02/2022 CMP14 +EGFR A/G ratio 2.1 1.2-2. 2 Not Available [facility] ([facility]) [address] [facility] [place], [address], 09/02/2022 20:08:37 09/02/19 23 09/02/2022 CMP14 +EGFR bilirubin, total 0.4 mg/dL 0.0-1. 2 Not Available [facility] ([facility]) [address] [facility] [place], [address], 09/02/2022 20:08:37 09/02/19 23 09/02/2022 CMP14 +EGFR alkaline phosphatase 57 IU/L 44-121 Not Available [facility] [address] [facility] [place], [address], 09/02/2022 20:08:37 09/02/19 23 09/02/2022 CMP14 +EGFR AST (SGOT) 18 IU/L 0-40 Not Available [facility] ([facility]) [address] [facility] [place], [address], 09/02/2022 20:08:37 09/02/19 23 09/02/2022 CMP14 +EGFR ALT (SGPT) 16 IU/L 0-32 Not Available [facility] ([facility]) [address] [facility] [place], [address], 09/02/2022 20:08:37 09/02/19 23 09/02/2022 T4+TS H+T3+ T4F+T 3FREE +TPO TSH 5.710 uIU/m L 0.450- 4.500 above high normal Not Available [facility] ([facility]) [address] [place], [address], 09/02/2022 20:08:38 09/02/19 23 09/02/2022 T4+TS H+T3+ T4F+T 3FREE +TPO thyroxine (T4) 8.3 ug/dL 4.5-12 .0 Not Available [facility] ([facility]) [address] [place], [address], 09/02/2022 20:08:38 09/02/19 23 09/02/2022 T4+TS H+T3+ T4F+T 3FREE +TPO triiodothyro nine (T3) 108 NG/dL 71-180 Not Available [facility] ([facility]) [address] [place], [address], 09/02/2022 20:08:38 09/02/19 23 09/02/2022 T4+TS H+T3+ T4F+T 3FREE +TPO triiodothyro nine (T3), free 2.8 pg/mL 2.0-4. 4 Not Available [facility] ([facility]) [address] [place], [address], 09/02/2022 20:08:38 09/02/19 23 09/02/2022 T4+TS H+T3+ T4F+T 3FREE +TPO T4,free(dire ct) 1.43 NG/dL 0.82-1 .77 Not Available [facility] ([facility]) [address] [place], [address], 09/02/2022 20:08:38 09/02/19 23 09/02/2022 T4+TS H+T3+ T4F+T 3FREE +TPO thyroid peroxidase (tpo) Ab 37 IU/mL 0-34 above high normal Not Available [facility] ([facility]) [address], [place], [address], 09/02/2022 20:08:38 04/17/20 22 04/17/2022 [facility] thy[facility] id [facility] [address] [place] [address] Phone: Fax: Name: DEVAUGHN MCGOVERN Exam Date: : [birth year] Age 27 Gender : F Access ion: [id number] Physic kalee: PAYTON CHRIS Facili ty: [facility]ATRIC Facili ty HSV: Outpat ient Exam: US THYROI D THYROI D ULTRAS OUND HISTOR Y: Thyroi d nodule . PROCED URE: Sonogr aphic images of the thyroi d gland were perfor med. FINDIN GS: The right lobe of the thyroi d measur es 3.5 x 0.8 x 0.9 cm in size. The left lobe of the thyroi d measur es 2.7 x 0.7 x 0.7 cm in size. Thyroi d gland is normal size. The parenc hyma shows normal echoge nicity . No domina nt mass is seen. IMPRES ANASTASIA: No focal mass identi fied. The films were review ed, interp reted, and dictat ed by Dr. Kumar Transc ribed by Carisa Franco PA-C Dictat ed By: VANESSA KUMAR Transc ribed By: VANESSA KUMAR Transc ribed On: 12:15 PM Electr onical ly signed by: VANESSA KUMAR Thank you for referr ing DEVAUGHN MCGOVERN to [facility]. Legall y authen ticate d by POPE VANESSA Jones DO 2021-06 12:15: 19 CC'ed Logic: Orderi ng Provid er: KAROLYN CAIN CC Provid er: KAROLYN CAIN Attend ing Provid er: KAROLYN CAIN Referr ing Provid er: KAROLYN CAIN Admitt ing Provid er: KAROLYN CAIN [email or web address] [facility] (Radiology) [address] , [place], [address], 04/20/2022 14:06:31 02/25/2002/24/2023 XR, wrist No observ ation record ed. [address], [place], [address], 02/25/2023 08:14:53 02/25/2002/24/2023 XR, hand No observ ation record ed. [address] , [place], [address], 02/25/2023 08:14:18 02/25/2002/24/2023 XR, elbow No observ ation record ed. [address], [place], [address], 02/25/2023 08:14:30 02/25/2002/24/2023 XR, forea rm No observ ation record ed. [address], [place], [address], 02/25/2023 08:14:42 Result Notes None recorded. Problems Name Problem SNOMED Code Status Onset Date Resolution Date Notes Provider Name and Address Organization Details Recorded Time Hypothyroidism 85810816 Active 2021 ALEXANDRE Sahni LPNT - [place] & [place] 2 07:39:15 Anxiety 66724252 Active 2021 ALEXANDRE Sahni [facility] - [place] & [place] 2 07:39:22 Hyperlipidemia 86736168 Active 2021 ALEXANDRE Sahni LP[facility] - [place] & [place] 2 07:39:29 Problem Notes None recorded. Procedures Surgical History Date Name Laterality Status Provider Name and Address Organization Details Recorded Time Cholecystectomy completed Marian Henley LPNT [facility] & [place] 03/23/2022 07:40:53 Imaging Results None recorded. Procedure Notes None recorded. Medical Equipment None Reported. Allergies Allergen ID Allergen Name Allergen Category Reaction Reaction Severity Criticality Documentation Date Start Date Code Code System Note Provider Name and Address Organization Details Recorded Time 90703 ibuprofen medicatio n Not available Not available Not available 03/23/2022 5640 RxNorm Marian Bernard [facility], [facility] & [place] 07:39:06 Medications Name Sig Start Date Stop Date Status Note LastModified by Organization Details LastModified Time amoxicillin 500 mg capsule TAKE 1 CAPSULE BY MOUTH THREE TIMES DAILY 03/23 completed Not Available Not Available Not Available metformin 500 mg tablet TAKE 1 TABLET 1 TIME EACH DAY WITH A MEAL 03/23 completed Not Available Not Available Not Available prednisone 10 mg tablet TAKE 4 TABLETS ON 09/25 TO 09/27. TAKE 2 TABLETS ON 09/28 TO 09/30. TAKE 1 TABLET ON 10/01 TO 10/03. 03/23 completed Not Available Not Available Not Available cetirizine 10 mg tablet TAKE 1 TABLET 1 TIME EACH DAY active Not Available Not Available No t Available bupropion HCl SR 100 mg tablet,12 hr sustained-r elease TAKE 2 TABLETS IN THE MORNING, AND TAKE 1 TABLET IN THE EVENING 03/23 completed Not Available Not Available Not Available levothyroxi ne 125 mcg tablet TAKE 1 TABLET 1 TIME EACH DAY active Not Available Not Available No t Available docusate sodium 100 mg capsule 03/23 completed Not Available Not Available Not Available hydroxyzine HCl 25 mg tablet TAKE 1 TABLET 1 TIME EACH DAY IN THE EVENING 03/23 completed Not Available Not Available Not Available ondansetron 4 mg disintegrat ing tablet DISSOLVE 1 TABLET IN MOUTH EVERY 6 HOURS NEEDED FOR VOMITTING active Not Available Not Available No t Available fluticasone propionate 50 mcg/actuati on nasal spray,suspe nsion SPRAY 1 TIME IN EACH NOSTRIL ONCE A DAY active Not Available Not Available No t Available levothyroxi ne 112 mcg tablet TAKE 1 TABLET ONCE A DAY IN THE MORNING ON AN EMPTY STOMACH. active Not Available Not Available No t Available bupropion HCl SR 200 mg tablet,12 hr sustained-r elease TAKE 1 TABLET 2 TIMES EACH DAY active Not Available Not Available No t Available BD Ultra-Fine Mini Pen Needle 31 gauge x /16 USE TO INJECT SAXENDA 1 TIME EACH DAY active Not Available Not Available No t Available ClearLax 17 gram/dose oral powder MIX AND TAKE ACCORDING TO PACKAGE AND PRESCRIBE R INSTRUCTI ONS. 03/23 completed Not Available Not Available Not Available Saxenda 3 mg/0.5 mL (18 mg/3 mL) subcutaneou s pen injector INJECT 1.8 MG UNDER THE SKIN 1 TIME EACH DAY active Not Available Not Available No t Available Flowflex COVID-19 Antigen Home Test kit 03/23 completed Not Available Not Available Not Available Vitals Date Recorded Body height Body mass index (BMI) Body weight Body temperature Oxygen saturation Oxygen saturation in Arterial blood by Pulse oximetry Heart rate Systolic blood pressure Diastolic blood pressure Provider Name and Address Organization Details Last Updated DateTime 3 157.48 cm 32.1 kg/m2 41995.1 g 97.4 [degF] 98 % 98 % 76 /min 108 mm[Hg] 75 mm[Hg] Emily Kassi SCHROEDER - [facility]NT [facility] 3 10:45:15 Date Recorded Body height Body mass index (BMI) Body weight Body temperature Oxygen saturation Oxygen saturation in Arterial blood by Pulse oximetry Heart rate Systolic blood pressure Diastolic blood pressure Provider Name and Address Organization Details Last Updated DateTime 2 157.48 cm 33.5 kg/m2 65160.8 4 g 98.6 [degF] 98 % 98 % 80 /min 121 mm[Hg] 76 mm[Hg] Emiylrodney SCHROEDER - LPNT [facility] & [place] 2 10:13:31 Date Recorded Body height Body mass index (BMI) Body weight Body temperature Oxygen saturation Oxygen saturation in Arterial blood by Pulse oximetry Heart rate Systolic blood pressure Diastolic blood pressure Provider Name and Address Organization Details Last Updated DateTime 2 157.48 cm 34.3 kg/m2 48267.2 1 g 98.2 [degF] 99 % 99 % 81 /min 124 mm[Hg] 81 mm[Hg] Emily Kassi SCHROEDER - LPNT [facility] & [place] 2 09:35:01 Social History Question Answer Notes LastModified by Organizat ion Details LastModified Time Tobacco Smoking Status Never Smoker EmilyALEXANDRE Young - [facility]NT - [place] & [place] 03/23/2022 10:15:29 What Was The Date Of Your Most Recent Tobacco Screening? 04/22/2022 Information not available 04/22/2022 Sex: Unknown Functional Status Question Answer Note LastModified by Organizat ion Details LastModified Time Do you use any illicit or recreational drugs? No Information not available 04/22/2022 Do you or have you ever used any other forms of tobacco or nicotine? No Information not available 04/22/2022 What is your level of alcohol consumption? None Information not available 03/23/2022 Mental Status None recorded. Family History Relationship Description Onset Age of this Age Resolved Age Notes LastModified by Organization Details LastModified Time Brother Hyperlipidem ia [email or web address] Not available 2021 07:39:46 Brother Diabetes mellitus jkiskaden Not available 2021 07:39:59 Father Diabetes mellitus jkiskaden Not available 2021 07:39:59 Father Coronary arterioscler osis jkiskaden Not available 2021 07:40:40 Mother Chronic obstructive pulmonary disease deceas ed jkiskaden Not available 03/23/2022 07:40:10 Mother Staphylococc al infectious disease deceas ed jkiskaden Not available 03/23/2022 07:40:32 Medical History Condition Response Anxiety Disorder Y Hypothyroidism Y High Cholesterol Y Gynecological HistoryNo gynecological history recorded. Obstetrics History GPAL:G 0 P 0 0 0 0 Immunizations Vaccine Type Date Status Note Provider Nam e and Address Organization Details Recorded Time MMR 8 completed Emily Short null, [place] - [facility]NT - [place] & [place] 09/01/2022 10:45:28 OPV 8 completed Emily Short null, [place] - [facility] - [facility] [place] 09/01/2022 10:45:28 Td (adult), 2 Lf tetanus toxoid, preservative free, adsorbed 5 completed Emily Short null, [place] - [facility] - [place] & [place] 09/01/2022 10:45:28 DTaP, unspecified formulation 8 completed Emily linder, ALEXANDRE - [facility] - [place] & [place] 09/01/2022 10:45:28 Past Encounters Encounter ID Performer Location Encounter Start Date Encounter Closed Date Diagnosis/Indication Diagnosis SNOMED-CT Code Diagnosis ICD10 Code Diagnosis Note [id number] Payton Chris APRN [address] [address] 03/23/2022 10:02:34 03/23/2022 10:39:13 Mixed anxiety and depressive disorder 636481410 F41.8 take medication as prescribed monitor for worsening anxiety and depression Seasonal allergy 4389279 04 J30.2 continue medication s as prescribed monitor for worsening symptoms Acquired hypothyroidism 453982308 E03.9 continue medication as prescribed Prediabetes 444350744 R7 3.03 continue medication as prescribed Thyroid nodule 592326408 E04.1 follow up [place] ordered [id number] Payton Chris APRN [address] [address] 04/22/2022 09:24:53 04/22/2022 10:36:48 Hypothyroidism 81333421 E03.9 blood drawn in the right AC by Emily Solitario CMA, patient tolerated wellcontin ue to take medication as prescribed take medication on an empty stomach in the AMincrease water intakemoni tor for s/s of hypothyroi dism [id number] Payton Chris APRN [address] [address] 09/01/2022 10:23:41 09/01/2022 12:03:31 Hypothyroidism 72249261 E03.9 L65.9 blood drawn in the right AC by Juancarlos Sierra CMA, patient tolerated wellcontin ue to take medication as prescribed take medication on an empty stomach in the AMincrease water intakemoni tor for s/s of hypothyroi dism Health Concerns Section Related Observation LastModified by Organization Shakila james LastModified Time None Recorded Concern Status LastModified by Organization Details LastModified Time None Recorded Advance Directives Directive None Recorded Payers Insurance Date Sequence Insurance Name Policy Number Policy Candelario Covered Member ID Candelario Member ID Guarantor Name 08/29/2022 2 DEEDEE-ALEXANDRE: [place] [id number] Guera Mcgovern [id number] Guera Mcgovern 10/09/2019 1 UNSPECIFIED REMIT PAYOR Guera Mcgovern 03/20/2022 1 [place]: [employer] 1[employer] (PPO) [id number] Guera Morans [id number] Guera Mcwilliams Mcgovern 10/07/2020 1 [place]) [id number] No Moser [id number] Guera Morans 08/29/2022 1 [place] [id number] Guera Mcgovern [id number] Guera Mcgovern Notes Date Note Type Note Provider Name and Address Organization Details Recorded Time 2 text/html 27 y/o female that presents to the clinic for medication refills. Pt is taking her medications as prescribed within her chart today. She is not having any complications. She would like to increase her saxenda daily injection, been doing well with 1.2 mg and would like to go up to 1.8mg daily. Does complain of cotton mouth. No recent acute illnesses requiring abx. taking levothyroxine on an exmpty stomach in the AM. Payton Chris APRN [address] [place], [address] 03/23/2022 17:16:30 2 text/html 27 y/o female that presents to the clinic for a follow up on hypothyroidism. 3 months ago TSH was elevated to 6.0 but free t4 was normal. Pt is currently on 112mcg of levothyroxine and is taking it on an empty stomach in the morning. Pt denies any s/s of hypothyroidism. Had a recent US of thyroid and found to be normal without abnormalities. Payton Chris APRN [address] [place], [address] 05/05/2022 20:19:37 3 text/html HypothyroidReported bypatient.Reason for Visit:new symptom(s) (worsening hair thinning) Duration:1-3 months (last 2 months has worsened) Associated Symptoms:no weakness; no lightheadedness; no fatigue; no cold intolerance; no constipation; no weight gain; no involuntary weight loss; normal mood; no menstrual irregularity; no pain; no dry/coarse skin; no edema; no deepening of the voice; no hoarseness; no goiter; no mass detected; no chest pain; no palpitations;fatigue Treatment:taking medication as prescribed Payton Chris APRN [address] [place] [address], [phone], [facility] 09/01/2022 11:08:07 OBGyn Episode No OBEpisode recorded.
--- OUTSIDE RECORDS SUMMARY | 2024-11-24 22:55 | XMS_ITS | Patient Health Record ---
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
[2024-11-24 22:57] VITALS: BP 120/78; PULSE 65; RESP 20; TEMP 36.6; O2SAT 100; BMI 34.4
[2024-11-24 23:00] VITALS: BP 143/90; PULSE 64; O2SAT 99
--- NOTE | 2024-11-24 23:04 | XR_ITS ---
PROCEDURE INFORMATION: Exam: XR Left Foot Exam date and time: 11/24/2024 11:50 PM Age: 29 years old Clinical indication: Pain; Foot; Left; Additional info: Ttp with palpable hard knot over mid 5th metatarsa TECHNIQUE: Imaging protocol: Radiologic exam of the left foot. Views: 3 or more views. COMPARISON: CR XR FOOT LT MIN 3V 03/06/2024 2:05 PM FINDINGS: Bones/joints: No acute fracture. No dislocation. Soft tissues: Unremarkable. IMPRESSION: No fracture. If pain persists, consider MRI for further evaluation.
--- NOTE | 2024-11-24 23:05 | HMH.EDGENADL ---
Discharge Plan Disposition Patient Disposition: Home, Self-Care Condition: Good Prescriptions Prescriptions: No Action Saxenda 3 mg/0.5 mL (18 mg/3 mL) pen injector 2.4 mg SQ DAILY 30 Days Qty: 12 2RF amoxicillin-pot clavulanate 875-125 mg tablet 1 tab PO BID 7 Days Qty: 14 0RF fluticasone propionate [Flonase Allergy Relief] 50 mcg/actuation spray,suspension 2 spray intranasal DAILY Qty: 16 2RF Rx Instructions: administer into each nostril daily methylprednisolone [Medrol (Nathan)] 4 mg tablets,dose pack See Rx Instructions PO PER PKG DIR Qty: 21 0RF Rx Instructions: PO PER PKG DIR for 6 days levothyroxine 125 mcg tablet See Rx Instructions .ROUTE .COMPLEX Qty: 30 3RF Dose Instruction: TAKE 1 TABLET 1 TIME EACH DAY FOR THYROID Rx Instructions: TAKE 1 TABLET 1 TIME EACH DAY FOR THYROID bupropion HCl 200 mg tablet sustained-release 12 hr See Rx Instructions .ROUTE .COMPLEX Qty: 60 3RF Dose Instruction: TAKE 1 TABLET 2 TIMES EACH DAY Rx Instructions: TAKE 1 TABLET 2 TIMES EACH DAY cetirizine [Zyrtec] 10 mg Tablet 10 mg PO DAILY Referrals Follow up/Referrals: Essie Cooley APRN [Primary Care Provider, Medical] - See instructions Kelin Anderson DPM [Staff Physician, Podiatry] - See instructions Referral Note: L 5th metatarsal hard painful nodule, sudden onset without fx Activity Restrictions/Add. Instructions Additional Instructions/Restrictions: You were evaluated in the ER and are appropriate for discharge at this time. Take Tylenol if needed for pain, do not exceed the recommended dose on the bottle. Drink water and eat a small snack each time you take this medication to avoid side effects. Wear the hard soled shoe as directed. Use the crutches to get around until cleared by podiatry. Call Dr. Anderson's office first thing Wednesday morning and make an appointment for follow-up. Make an appointment with your primary care doctor for reevaluation as well. Return to the ER with new, worsening, or otherwise concerning symptoms. Clinical Impressions Clinical Impression: Acute pain of left foot Stand Alone Forms Stand Alone Forms: Work/School Release Print Language Print Language: Mongolian Discharge ED Provider: Nadir Osman Adult HPI General Chief complaint: PAIN Stated complaint: Large knot on left foot,juarez & painful Time Seen by Provider: 11/24/24 22:59 Mode of Arrival: Ambulatory Source of Information: Patient Description of Symptoms (Recalled from ER Triage Doc. by RN): patient states she was sitting in a chair tonight and tried to cross her legs underneath her and felt a knot on her left foot and it felt like lightening went through her foot. Denies any injury. History of Present Illness HPI narrative: 29-year-old female presents to the ER with complaints of left foot pain. Patient was sitting on a chair tonight with her legs crossed underneath when describes that her left foot sort of rolled under her and it felt like a sharp stabbing, hot pain through her foot. She now has a hard, extremely tender knot and points to her left fifth midshaft metatarsal. There is no redness or palpable heat but she states that it feels hot inside. She states it is painful to walk on. She has no bruising. No foreign body or laceration, she denies fevers, numbness, tingling, or weakness. She states she works at [employer] and is on her feet 10 hours a day but has not experienced pain like this before. No other complaints or concerns. Patient reports she is insulin resistant but not a full diabetic. Related Data Home Medications ?Medication ?Instructions ?Recorded ?Confirmed cetirizine 10 mg tablet (Zyrtec) 10 mg PO DAILY 05/03/24 08/07/24 Previous Rx's ?Medication ?Instructions ?Recorded liraglutide (weight loss) 3 mg/0.5 2.4 mg (0.4 mL) SQ DAILY insulin 06/02/23 mL (18 mg/3 mL) subcut pen resistant 30 days #12 mL injector (Saxenda) amoxicillin 875 mg-potassium 1 tab PO BID 7 days #14 tabs 08/07/24 clavulanate 125 mg tablet fluticasone propionate 50 2 spray intranasal DAILY #16 grams 08/07/24 mcg/actuation nasal spray,suspension (Flonase Allergy Relief) methylprednisolone 4 mg tablets in See Rx Instructions PO PER PKG DIR 08/07/24 a dose pack (Medrol (Nathan)) #21 tabs bupropion HCl 200 mg tablet,12 hr See Rx Instructions .Route 10/30/24 sustained-release .COMPLEX #60 tabs levothyroxine 125 mcg tablet See Rx Instructions .Route 10/30/24 .COMPLEX #30 tabs Allergies Allergy/AdvReac Type Severity Reaction Status Date / Time ibuprofen (IBUPROFEN) Allergy Intermediate I-HIVES Verified 08/07/24 12:18 [facility] Disclaimer: The information contained in this section may have been updated after the patient was seen, as this information can be updated by other users. Medical History (Updated 11/25/24 @ 00:31 by Nadir Osman MD) Sinusitis Insulin resistance Hypothyroidism Surgical History Hx of cholecystectomy Social History Smoking Status: Never smoker alcohol intake: never current occupational status: other Travel in the last 8 weeks?: None Have you lived/traveled outside US in past 30 days?: No Contact w/someone who lives/traveled outside US past 30 days?: No Exposure to someone with infectious disease in past 14 days?: No Do you have a fever (greater than 100.4 F or 38 C)?: No Have you tested positive for COVID-19?: No Exposed to someone with COVID-19 in past 14 days?: No Do you have a sore throat?: No Do you have a cough?: No Do you have any weakness?: No Do you have any diarrhea?: No Are you experiencing any unusual bleeding?: No Do you have any muscle aches/pain?: No Do you have any abdominal pain?: No Are you experiencing loss of taste or smell?: No Other Medical History Have you received the Flu Vaccine for this season: No Have you received the Pneumonia Vaccine: No ROS Obtained: Yes Systems reviewed as appropriate & no additional complaints except as documented per HPI Physical Exam General General appearance: alert and in no apparent distress Head Head exam: atraumatic and normocephalic Eye Eye exam: Present PERRL and EOMI ENT ENT exam: Present mucous membranes moist Neck Neck exam: Present normal inspection and full ROM Chest Chest inspection: Present symmetric chest wall rise Respiratory Respiratory exam: Absent respiratory distress or stridor Cardiovascular Cardiovascular exam: Present regular rate and normal rhythm Extremities Exam Extremities exam: Present full ROM Expanded Lower Extremity Exam Left: Top foot image:  1. Approximately 1 cm tender palpable hard nodule with no erythema, induration, or fluctuance, no bruising, laceration, or foreign body. Neurovascularly intact distally Neurological Exam Neurological exam: Present alert and oriented X3; Absent motor sensory deficit Psychiatric Psychiatric exam: Present normal affect and normal mood Skin Skin exam: Present warm and dry Medical Decision Making Medical Records Medical records reviewed: Yes I reviewed the patient's medical records. Screening: Per USPSTF and CDC recommendations, given the prevalence of disease in our region, it is our hospital?s policy to screen for HIV and viral Hepatitis for all patients aged 18 and over and those with ongoing risk factors. Miguel Inquiry Pt receiving controlled substance: No Vital Signs: 11/24/24 22:57 11/24/24 23:00 11/24/24 23:31 Temperature 98 F Temperature Source Oral Pulse Rate 64 57 L Pulse Rate [Left] 65 Respiratory Rate 20 Blood Pressure 143/90 H 115/71 Blood Pressure [Right Arm] 120/78 Blood Pressure Mean [Right Arm] 92 Blood Pressure Source [Right Arm] Automatic Cuff Blood Pressure Position [Right Arm] Sitting 02 Sat by Pulse Oximetry 100 99 100 Oxygen Delivery Method Room Air Orders (Tests/Meds): ED MEDICATIONS Discontinued Medications Generic Name Dose Route Start Last Admin Trade Name Freq PRN Reason Stop Dose Admin Acetaminophen 1,000 mg 11/24/24 23:04 11/24/24 23:13 Acetaminophen 500mg Tab PO 11/24/24 23:05 1,000 mg ONCE ONE Administration ORDERS Category Date Time Status Foot XR left minimum 3 views [XR foot LT min 3V] Stat Exams 11/24/24 23:04 Completed Medical Decision Narrative: In summary, this 29-year-old female with comorbidities described in HPI presents to the emergency department today with left foot pain. On initial evaluation patient is hemodynamically stable, afebrile, physical exam notable for hard, tender, palpable nodule in the midshaft of the left fifth metatarsal with no crepitus or deformity, no bruising or swelling, neurovascularly intact. Differential diagnosis includes but is not limited to fracture, osteophyte, avulsion fracture, soft tissue injury, there is no evidence of infectious etiology or foreign body. Based on these concerns, I ordered x-ray left foot. Patient received Tylenol initially for symptom management. X-ray personally interpreted does not demonstrate any obvious acute osseous injury, see radiology read for final interpretation. On reassessment patient continues to have discomfort with focal tenderness over the hard nodule over the fifth metatarsal. I do not have a clear etiology of this, I do not believe she requires further workup in the ER. She was placed in a hard soled shoe for stabilization and support. She was provided crutches for use with ambulation since she has pain in this area when ambulating. She was given referral to Dr. Anderson with podiatry for follow-up and provided a note to be off work until cleared. Patient was given instructions on symptomatic management, follow up instructions, and return precautions for the emergency department. Patient indicated understanding and was discharged in stable condition. Critical Care Critical Care Time Critical Care Time: No
[2024-11-24] MEDS: ACETAMINOPHEN 500MG TAB 1000 MG PO (23:13)
[2024-11-24 23:31] VITALS: BP 115/71; PULSE 57; O2SAT 100
[2024-11-25 00:30] VITALS: BP 120/76; PULSE 52; RESP 12; O2SAT 100
[2024-11-25 00:43] VITALS: BP 120/76; PULSE 52; RESP 12; TEMP 36.6; O2SAT 100
--- NOTE | 2024-11-25 00:43 | PC.NURSE ---
pt given crutches, post op hard shoe and taught about crutches and helping ease pressure on foot. pt states she will just carry crutches outside.
== END 2024-11-25 00:45 | disposition home or self-care (01) ==
PROVIDERS: Emergency Provider Emergency Medicine; PCP Nurse Practitioner Family
DX: M79.672 Pain in left foot (principal)
CPT/HCPCS: 73630; 99283